=== PATIENT | female | born 1955 | race Caucasian/White ===

== ENCOUNTER 2017-05-28 16:06 | Emergency (ER) | payer MEDICAID ==
[2017-05-28 16:10] VITALS: BP 132/70; PULSE 64; O2SAT 97
--- NOTE | 2017-05-28 16:25 | ERPHSYRPT ---
- History of Present Illness Time Seen by Provider: 05/28/17 16:16 Source: patient Exam Limitations: no limitations Patient Subjective Stated Complaint: PT REPORTS LOW BACK SPASMS ON LEFT SIDE- REPORTS WAS TX AT PCP TODAY-PAIN BECAME WORSE TONIGHT-DENIES NUMBNESS OR TINLGING-DENIES INJURY Triage Nursing Assessment: PT PINK WARM ET [id number] OBVIOUS INJURY-NO BRUISING OR ABRASIONS-PT ABLE TO BEAR WT Physician History: The patient is a 62-year-old female who complains of spasms to her left lower back that became worse today. She states that on Saturday her son-in-law gave her a big hug, lifting her off the ground, and causing her back to began to hurt. It hurt yesterday. She saw her doctor today who had her place some patches on her back that made it worse. She denies numbness or tingling. She denies urinary problems. She denies bowel problems. Her past medical history is significant for COPD. Timing/Duration: day(s) (2), gradual onset Method of Injury: twisted Quality: aching Back Pain Location: lumbar spine, paraspinous muscles Severity of Pain-Max: moderate Severity of Pain-Current: moderate Modifying Factors: Improves With: movement Associated Symptoms: denies symptoms, muscle spasms, No urinary incontinence, No loss of bowel control, No problems urinating, No numbness in legs/feet, No sensory/motor loss, No tingling in legs/feet Previous symptoms: no prior history Allergies/Adverse Reactions: cephalexin monohydrate [From Keflex] Allergy (Severe, Verified 05/28/17 16:10) nitroglycerin Allergy (Severe, Verified 05/28/17 16:10) cardiac arrest Home Medications: Aspirin EC 325 mg [Ecotrin 325 MG] 325 mg PO DAILY 08/07/13 [History] Hx Tetanus, Diphtheria Vaccination/Date Given: No Hx Influenza Vaccination/Date Given: No Hx Pneumococcal Vaccination/Date Given: No Immunizations Up to Date: Yes - Review of Systems Constitutional: No Fever, No Chills Eyes: No Symptoms Ears, Nose, & Throat: No Symptoms Respiratory: No Cough, No Dyspnea Cardiac: No Chest Pain, No Edema, No Syncope Abdominal/Gastrointestinal: No Abdominal Pain, No Nausea, No Vomiting, No Diarrhea Genitourinary Symptoms: No Dysuria Musculoskeletal: Back Pain Skin: No Rash Neurological: No Dizziness, No Focal Weakness, No Sensory Changes Psychological: No Symptoms Endocrine: No Symptoms Hematologic/Lymphatic: No Symptoms Immunological/Allergic: No Symptoms All Other Systems: Reviewed and Negative - Past Medical History Pertinent Past Medical History: Yes Respiratory History: COPD - Past Surgical History Past Surgical History: Yes Gastrointestinal: Cholecystectomy, Hernia Repair - Social History Smoking Status: Current every day smoker How long have you smoked: 43 Exposure to second hand smoke: Yes Drug Use: none Patient Lives Alone: No - Female History Hx Now: No - Nursing Vital Signs Nursing Vital Signs: Initial Vital Signs Temperature 99.0 F 05/28/17 16:06 Pulse Rate 64 05/28/17 16:06 Respiratory Rate 18 05/28/17 16:06 Blood Pressure 132/70 05/28/17 16:06 O2 Sat by Pulse Oximetry 97 05/28/17 16:06 Pain Scale Pain Intensity 3 - Physical Exam General Appearance: mild distress Eye Exam: PERRL/EOMI, eyes nml inspection Ears, Nose, Throat Exam: normal ENT inspection Neck Exam: normal inspection, non-tender, supple, full range of motion, No meningismus, No midline tenderness Respiratory Exam: normal breath sounds Cardiovascular Exam: regular rate/rhythm, normal heart sounds Gastrointestinal Exam: soft, No tenderness, No mass Pelvic Exam: not done Rectal Exam: not done Back Exam: decreased range of motion, muscle spasm Extremity Exam: normal inspection, normal range of motion, No calf tenderness, No pedal edema Neurologic Exam: alert, oriented x 3, cooperative, diagnostic imaging manager II-XII nml as tested, normal mood/affect, nml station & gait, sensation nml, No motor deficits Skin Exam: normal color, warm, dry, No rash SpO2 Interpretation: normal SpO2: 97 Oxygen Delivery: Room Air - Progress Progress: improved Counseled pt/family regarding: diagnosis - Departure Time of Disposition: 16:30 Departure Disposition: Home Clinical Impression: Back spasm Condition: Stable Critical Care Time: No Additional Instructions: You have a back spasm on the left side. You were given Toradol 60 mg and Decadron 10 mg by IM injection in the ER. Take Flexeril 5 mg every 8 hours as needed. Apply ice as needed. Have someone gently massage the tight muscle as needed. Follow-up as needed. Prescriptions: Cyclobenzaprine HCl [Flexeril] 5 mg PO Q8H PRN PRN #10 tablet PRN Reason: Muscle Spasms
[2017-05-28] MEDS ORDERED: DECADRON 10MG INJ. IM ONE (16:29)
[2017-05-28] MEDS ORDERED: TORAdol 30 mg Injection IM ONE (16:29)
[2017-05-28] MEDS ORDERED: TORAdol 30 mg Injection ONE (16:34)
[2017-05-28] MEDS ORDERED: DECADRON 10MG INJ. ONE (16:34)
== END 2017-05-28 16:49 | disposition home or self-care (01) ==
LOC: ED 16:06
DX: M62.830 Muscle spasm of back (principal); M54.5 Low back pain; X50.9XXA Other and unspecified overexertion or strenuous movements or postures, initial encounter
CPT/HCPCS: 96372; 99284; J1100; J1885

== ENCOUNTER 2022-04-12 17:34 | Emergency (ER) | payer MEDICARE, OTHER ==
[2022-04-12] MEDS ORDERED: DUONEB 0.5-3 MG/3 ml Neb IH ONE ×2 (18:13→18:37)
--- NOTE | 2022-04-12 18:22 | ERPHSYRPT ---
- History of Present Illness Time Seen by Provider: 04/12/22 18:01 Source: patient Exam Limitations: no limitations Patient Subjective Stated Complaint: PT CO INCREASE SOB, WAS SEEN SATURDAY BY FAMILY DOC AND PLACED ON INHALER, STEROIDS, AND ANTIBOITCS,SHE STATES SHE IS NOT BETTER Triage Nursing Assessment: PT ALERT, ARRIVED PER WC, RESP LABORED WITH MOVEMENT, HAS CONGESTED SOUNDING COUGH, BS DIMINISHED Physician History: 70 years old female with history of tobacco abuse, COPD presented in the ER with over 1 week history of gradually worsening cough productive of clear to yellow sputum moderate in amount with associated increasing shortness of breath especially with exertion. Patient reports she was seen outpatient and is currently taking Zithromax. She has been using inhaler frequently than prescribed to get some relief but does not last longer. No fever or chills reported. Complaining of generalized chest tightness and pressure and wheezing with getting short of breath with few steps. Reports earlier her oxygen saturation was dropping and upper 70s, lower 80s. Timing/Duration: week(s) (1), gradual onset, worse Severity of Dyspnea-Max: moderate Severity of Dyspnea-Current: moderate Possible Cause: unknown cause Modifying Factors: Improves With: albuterol inhaler, rest. Worsens With: coughing, exertion Associated Symptoms: cough, chest pain/discomfort, productive cough, tightness, No fever, No hemoptysis Allergies/Adverse Reactions: cephalexin monohydrate [From Keflex] Allergy (Severe, Verified 04/12/22 17:44) nitroglycerin Allergy (Severe, Verified 04/12/22 17:44) cardiac arrest Home Medications: Aspirin EC 325 mg [Ecotrin 325 MG] 325 mg PO DAILY 08/07/13 [History] Azithromycin [Azithromycin 250 mg Pack] 1 ea DAILY 04/12/22 [History] methylPREDNISolone [Medrol] 1 ea DAILY 04/12/22 [History] Hx Tetanus, Diphtheria Vaccination/Date Given: No Hx Influenza Vaccination/Date Given: No Hx Pneumococcal Vaccination/Date Given: No Immunizations Up to Date: Yes Travel Risk - International Travel Have you traveled outside of the country in past 3 weeks: No - Coronavirus Screening Are you exhibiting any of the following symptoms?: Yes Symptoms: Cough: New Onset, Shortness of Breath Close contact with a COVID-19 positive Pt in past 14-21 Days: No - Vaccine Status Have you recieved a Covid-19 vaccination: No - Review of Systems Constitutional: No Symptoms Eyes: No Symptoms Ears, Nose, & Throat: No Symptoms Respiratory: Cough, Dyspnea, Dyspnea on Exertion (MENON), Wheezing Cardiac: No Symptoms Abdominal/Gastrointestinal: No Symptoms Genitourinary Symptoms: No Symptoms Musculoskeletal: No Symptoms Skin: No Symptoms Neurological: No Symptoms Psychological: No Symptoms Endocrine: No Symptoms Hematologic/Lymphatic: No Symptoms Immunological/Allergic: No Symptoms - Past Medical History Pertinent Past Medical History: Yes Respiratory History: COPD - Past Surgical History Past Surgical History: Yes Gastrointestinal: Cholecystectomy, Hernia Repair - Social History Smoking Status: Current every day smoker How long have you smoked: 43 Exposure to second hand smoke: Yes Drug Use: none Patient Lives Alone: No - Nursing Vital Signs Nursing Vital Signs: Initial Vital Signs Temperature 97.8 F 04/12/22 17:37 Pulse Rate 106 H 04/12/22 17:37 Respiratory Rate 26 H 04/12/22 17:37 Blood Pressure 157/110 04/12/22 17:37 O2 Sat by Pulse Oximetry 90 L 04/12/22 17:37 Pain Scale Pain Intensity 0 - Physical Exam General Appearance: no apparent distress, alert Eye Exam: photophobia Ears, Nose, Throat Exam: hearing grossly normal, normal ENT inspection, pharyngeal erythema Neck Exam: normal inspection, non-tender, supple, carotid bruit Respiratory Exam: diminished breath sounds, accessory muscle use, rhonchi, wheezing Cardiovascular/Chest Exam: normal heart sounds, regular rate/rhythm Abdominal/Gastrointestinal Exam: soft, normal bowel sounds, No tenderness Extremity Exam: non-tender, normal range of motion Neurologic Exam: alert, oriented x 3, sand filler II-XII nml as tested Skin Exam: normal color SpO2 Interpretation: normal SpO2: 90 O2 Delivery: Room Air - Course EKG Interpreted by Me: RATE (100), Sinus Rhythm, Left Davilla Deviation, NORMAL INTERVALS, Q-wave, Non-specific ST Changes Ordered Tests: Active Orders 24 hr Category Date Time Status Grounds Supervisor STAT Care 04/12/22 18:13 Active EKG-ER Only STAT Care 04/12/22 18:12 Active IV Insertion STAT Care 04/12/22 18:12 Active CBC W DIFF Stat Lab 04/12/22 18:30 Completed CMP Stat Lab 04/12/22 18:30 Completed TROPONIN Q3H Lab 04/12/22 18:30 Completed TROPONIN Q3H Lab 04/12/22 21:15 Ordered TROPONIN Q3H Lab 04/13/22 00:15 Ordered TROPONIN Q3H Lab 04/13/22 03:15 Ordered TROPONIN Q3H Lab 04/13/22 06:15 Ordered Respiratory Therapy Assessment DAILY RT 04/12/22 18:41 Active Medication Summary Discontinued Medications Generic Name Dose Route Start Last Admin Trade Name Tomaszq PRN Reason Stop Dose Admin Albuterol/Ipratropium 3 ml 04/12/22 18:13 04/12/22 18:38 Ipratropium/Albuterol Sulfate 3 Ml Ampul.Neb IH 04/12/22 18:14 3 ml STAT ONE Administration Albuterol/Ipratropium Confirm 04/12/22 18:37 Ipratropium/Albuterol Sulfate 3 Ml Ampul.Neb Administered 04/12/22 18:38 Dose 3 ml IH .STK-MED ONE Lab/Rad Data: Laboratory Result Diagrams 04/12/22 18:30 04/12/22 18:30 Laboratory Results 04/12/22 04/12/22 04/12/22 Range/Units 18:30 18:30 18:30 WBC 14.3 H (4.0-10.5) x10^3/uL RBC 5.20 (4.1-5.4) x10^6/uL Hgb 16.0 (12.0-16.0) g/dL Hct 48.2 H (35-47) % MCV 92.7 (78-100) fL MCH 30.8 (26-32) pg MCHC 33.2 (32-36) g/dL RDW 12.5 (11.5-14.0) % Plt Count 269 (150-450) x10^3/uL MPV 10.9 (7.5-11.0) fL Gran % 68.5 H (36.0-66.0) % Immature Gran % (Auto) 1.1 H (0.00-0.4) % Nucleat RBC Rel Count 0.0 (0.00-0.1) % Eos # (Auto) 0.18 (0-0.5) x10^3/uL Immature Gran # (Auto) 0.16 H (0.00-0.03) x10^3u/L Absolute Lymphs (auto) 2.26 (1.0-4.6) x10^3/uL Absolute Monos (auto) 1.80 H (0.0-1.3) x10^3/uL Absolute Nucleated RBC 0.00 (0.00-0.01) x10^3u/L Lymphocytes % 15.8 L (24.0-44.0) % Monocytes % 12.6 H (0.0-12.0) % Eosinophils % 1.3 (0.00-5.0) % Basophils % 0.7 (0.0-0.4) % Absolute Granulocytes 9.79 H (1.4-6.9) x10^3/uL Basophils # 0.10 (0-0.4) x10^3/uL Sodium 140 (137-145) mmol/L Potassium 3.7 (3.5-5.1) mmol/L Chloride 99 (98-107) mmol/L Carbon Dioxide 32 H (22-30) mmol/L Anion Gap 12.6 (5-15) MEQ/L BUN 11 (7-17) mg/dL Creatinine 0.59 (0.52-1.04) mg/dL Estimated GFR > 60.0 ML/MIN Glucose 106 (74-106) mg/dL Calcium 9.2 (8.4-10.2) mg/dL Total Bilirubin 0.70 (0.2-1.3) mg/dL AST 34 (14-36) U/L ALT 34 (0-35) U/L Alkaline Phosphatase 115 (38-126) U/L Troponin I < 0.012 (0.000-0.034) ng/mL Serum Total Protein 7.9 (6.3-8.2) g/dL Albumin 4.2 (3.5-5.0) g/dL - Progress Progress: re-examined Air Movement: fair Progress Note: 04/12/22 19:27 67-year-old smoker is evaluated for worsening shortness of breath and cough. She is given DuoNeb. Chest x-ray reviewed by me did not reveal any obvious acute findings. She has a white count of 14, EKG no acute ST elevation and negative troponins. Patient oxygen saturation is dropping to 89% on room air while sitting and with ambulation dropping to mid 80s. Patient though feeling better after neb treatment. I have recommended admission but she does not want to stay in the hospital at all. She is not confused altar and does understand the risk of leaving which could be not only worsening of condition but also full-blown respiratory distress leading to . She still wants to leave. Patient and her fianc was involved in decision making. She wanted prescription of DuoNeb sent to the pharmacy which I will do. She is advised to return to ER and follow-up with primary care. I have discussed with her primary care as well and he recommended obtaining COVID testing but patient said absolutely not to COVID test. Antibiotics given: No Discussed with DrElvin: Brittany Counseled pt/family regarding: lab results, diagnosis, need for follow-up, rad results, smoking cessation - Departure Departure Disposition: AMA Clinical Impression: COPD exacerbation, Respiratory failure Condition: Fair Critical Care Time: No Referrals: NIYA FELICIANO MD [Primary Care Provider] - Follow up/PCP as directed (Tomorrow for reevaluation) Instructions: Chronic Obstructive Pulmonary Disease, Exacerbation of COPD (DC) Additional Instructions: Do not smoke continue with breathing treatments as recommended. Continue with antibiotics. Follow-up with primary care for reevaluation tomorrow. Return to ER for any worsening. Prescriptions: Albuterol/Ipratropium 3ml Neb* [DUONEB 0.5-3 MG/3 ml Neb] 3 ml IH Q6H PRN 30 Days #120 amp PRN Reason: Shortness Of Breath
[2022-04-12 18:34] LABS: Absolute Neutrophil Ct (ANC) 9.79 x10^3/uL (1.4-6.9); Eosinophil % 1.3 % (0.00-5.0); Eosinophil (Absolute #) 0.18 x10^3/uL (0-0.5); Hematocrit 48.2 % (35-47); Lymphocyte (Absolute #) 2.26 x10^3/uL (1.0-4.6); Lymphocytes % 15.8 % (24.0-44.0); Mean Cell Volume 92.7 fL (78-100); Mean Corpuscular Hemoglobin 30.8 pg (26-32); Mean Corpuscular Hgb Concent. 33.2 g/dL (32-36); Mean Platelet Volume 10.9 fL (7.5-11.0); Monocytes % 12.6 % (0.0-12.0); Neutrophil % 68.5 % (36.0-66.0); Platelet Count 269 x10^3/uL (150-450); Red Cell Distribution Width 12.5 % (11.5-14.0); White Blood Count 14.3 x10^3/uL (4.0-10.5)
[2022-04-12 18:48] LABS: ALBUMIN 4.2 g/dL (3.5-5.0); ALKALINE PHOSPHATASE 115 U/L (38-126); ANION GAP 12.6 MEQ/L (5-15); BLOOD UREA NITROGEN 11 mg/dL (7-17); CHLORIDE 99 mmol/L (98-107); Calcium 9.2 mg/dL (8.4-10.2); Carbon Dioxide 32 mmol/L (22-30); Creatinine 1 0.59 mg/dL (0.52-1.04); EST GLOMERULAR FILTRATION RATE > 60.0 ML/MIN; Glucose 106 mg/dL (74-106); Potassium 3.7 mmol/L (3.5-5.1); SGOT/AST 34 U/L (14-36); SGPT/ALT 34 U/L (0-35); SODIUM 140 mmol/L (137-145); Total Protein 7.9 g/dL (6.3-8.2)
[2022-04-12 19:08] VITALS: BP 135/84; PULSE 98
[2022-04-12 19:31] VITALS: O2SAT 90
[2022-04-13 01:00] LABS: Slide Review 1 YES
== END 2022-04-12 19:35 | disposition left against medical advice (07) ==
LOC: ED 17:34
DX: J44.1 Chronic obstructive pulmonary disease with (acute) exacerbation (principal); J96.90 Respiratory failure, unspecified, unspecified whether with hypoxia or hypercapnia; R05.9 Cough, unspecified; R07.9 Chest pain, unspecified; Z72.0 Tobacco use; Z79.52 Long term (current) use of systemic steroids; Z79.899 Other long term (current) drug therapy; Z28.310 Unvaccinated for COVID-19
CPT/HCPCS: 36000; 36415; 71046; 80053; 84484; 85025; 93005; 93041; 94640; 99284; A9270-GY

== ENCOUNTER 2022-11-26 09:26 | Observation (INO) | payer MEDICARE ==
--- NOTE | 2022-11-26 10:43 | ERPHSYRPT ---
- History of Present Illness Time Seen by Provider: 11/26/22 10:30 Source: patient Exam Limitations: no limitations Patient Subjective Stated Complaint: pt here for multi co, co nausea no vomitng for a few days is able to keep fluids down, increase sob and weakness Triage Nursing Assessment: pt alert, walked in, resp labored with excertion, lung sounds diminished,edema to lower legs that is normal for her, has congest sounding cough Physician History: Patient is a 67-year-old female presents emergency department for evaluation of nausea. Patient has been feeling nauseous for 3 days. Patient also has been experiencing progressive shortness of breath. Chest pain. upon arrival to our ED patient's breathing was labored. Patient states she feels weak and cold. Patient has generalized weakness that has been getting worse over the past 3 days as well. Symptoms are progressive. Symptoms are moderate in intensity. No specific worsening improving factors. Patient denies a history of the same. She voices no other complaints or concerns at this time. Of note patient is a current smoker. She states she is attempting to quit smoking. She is down to 5 cigarettes/day Portions of this note were created with voice recognition technology. There may be grammatical, spelling, punctuation or sound alike errors Timing/Duration: day(s) (3 days) Severity: moderate Modifying Factors: Improves With: nothing Associated Symptoms: nausea, shortness of breath, cough, No fever, No syncope Allergies/Adverse Reactions: cephalexin monohydrate [From Keflex] Allergy (Severe, Verified 11/26/22 09:29) nitroglycerin Allergy (Severe, Verified 11/26/22 09:29) cardiac arrest Home Medications: Aspirin EC 325 mg [Ecotrin 325 MG] 325 mg PO DAILY 08/07/13 [History] Hx Tetanus, Diphtheria Vaccination/Date Given: No Hx Influenza Vaccination/Date Given: No Hx Pneumococcal Vaccination/Date Given: No Immunizations Up to Date: Yes Travel Risk - International Travel Have you traveled outside of the country in past 3 weeks: No - Coronavirus Screening Are you exhibiting any of the following symptoms?: Yes Symptoms: Cough: New Onset, Shortness of Breath Close contact with a COVID-19 positive Pt in past 14-21 Days: No - Vaccine Status Have you recieved a Covid-19 vaccination: No - Review of Systems Constitutional: No Symptoms, No Fever, No Chills Eyes: No Symptoms Ears, Nose, & Throat: No Symptoms Respiratory: No Symptoms, No Cough, No Dyspnea Cardiac: No Symptoms, No Chest Pain, No Edema, No Syncope Abdominal/Gastrointestinal: No Symptoms, No Abdominal Pain, No Nausea, No Vomiting, No Diarrhea Genitourinary Symptoms: No Symptoms, No Dysuria Musculoskeletal: No Symptoms, No Back Pain, No Neck Pain Skin: No Symptoms, No Rash Neurological: No Dizziness, No Focal Weakness, No Sensory Changes Psychological: No Symptoms Endocrine: No Symptoms Hematologic/Lymphatic: No Symptoms Immunological/Allergic: No Symptoms All Other Systems: Reviewed and Negative - Past Medical History Pertinent Past Medical History: Yes Respiratory History: COPD - Past Surgical History Past Surgical History: Yes Gastrointestinal: Cholecystectomy, Hernia Repair - Social History Smoking Status: Current every day smoker How long have you smoked: 43 Exposure to second hand smoke: Yes Drug Use: none Patient Lives Alone: No - Nursing Vital Signs Nursing Vital Signs: Initial Vital Signs Respiratory Rate 22 11/26/22 10:24 Blood Pressure 113/61 11/26/22 10:24 O2 Sat by Pulse Oximetry 91 L 11/26/22 10:24 Pain Scale Pain Intensity 0 - Physical Exam General Appearance: no apparent distress, alert Eye Exam: PERRL/EOMI, eyes nml inspection Ears, Nose, Throat Exam: normal ENT inspection, TMs normal, pharynx normal, moist mucous membranes Neck Exam: normal inspection, non-tender, supple, full range of motion Respiratory Exam: normal breath sounds, lungs clear, airway intact, No respiratory distress Cardiovascular Exam: regular rate/rhythm, normal heart sounds, normal peripheral pulses Gastrointestinal/Abdomen Exam: soft, normal bowel sounds, No tenderness, No mass Back Exam: normal inspection, normal range of motion, No CVA tenderness, No vertebral tenderness Extremity Exam: normal inspection, normal range of motion, pelvis stable Neurologic Exam: alert, oriented x 3, cooperative, normal mood/affect, nml cerebellar function, nml station & gait, sensation nml, No motor deficits Skin Exam: normal color, warm, dry, No rash Lymphatic Exam: No adenopathy SpO2 Interpretation: normal SpO2: 91 O2 Delivery: Room Air - Course Nursing assessment & vital signs reviewed: Yes - Radiology Exams Chest X-ray Interpretation: Teleradiologist Report (New bilateral mid to lower lung consolidating/9 consolidating airspace disease without large effusion. Heart not enlarged. Bony thorax intact again with osteopenia and degenerative changes.) Ordered Tests: Active Orders 24 hr Category Date Time Status Loss Mitigation Specialist STAT Care 11/26/22 10:41 Active EKG-ER Only STAT Care 11/26/22 10:40 Active IV Insertion STAT Care 11/26/22 10:40 Active Pulse Oximetry (ED) STAT Care 11/26/22 10:40 Active CHEST 1 VIEW (PORTABLE) Stat Exams 11/26/22 10:41 Completed CBC W DIFF Stat Lab 11/26/22 09:45 Completed NT PRO BNP Stat Lab 11/26/22 09:45 Completed TROPONIN Q4H Lab 11/26/22 14:45 Ordered TROPONIN Q4H Lab 11/26/22 18:45 Ordered UA W/RFX UR CULTURE Stat Lab 11/26/22 10:41 Ordered Transfer Order Routine Transfer 11/26/22 Ordered Medication Summary Generic Name Dose Route Start Last Admin Trade Name Freq PRN Reason Stop Dose Admin Sodium Chloride 1,000 mls @ 100 mls/hr 11/26/22 13:30 Sodium Chloride 0.9% 1000 Ml IV 12/26/22 13:29 .Q10H STELLA Discontinued Medications Generic Name Dose Route Start Last Admin Trade Name Freq PRN Reason Stop Dose Admin Levofloxacin/Dextrose 500 mg in 100 mls @ 100 mls/hr 11/26/22 12:07 11/26/22 12:36 Levofloxacin 500mg/100ml D5w IV 11/26/22 13:06 100 ml/hr STAT STA 100 mls/hr Administration Levofloxacin/Dextrose Confirm 11/26/22 12:31 Levofloxacin 500mg/100ml D5w Administered 11/26/22 12:32 Dose 500 mg in 100 mls @ ud IV .STK-MED ONE Ondansetron HCl 4 mg 11/26/22 13:29 Ondansetron Hcl 4 Mg/2 Ml Vial IV 11/26/22 13:30 STAT ONE Potassium Chloride 40 meq 11/26/22 13:23 Potassium Chloride Tab 10 Meq Tab PO 11/26/22 13:24 STAT ONE Lab/Rad Data: Laboratory Result Diagrams 11/26/22 09:45 11/26/22 09:45 Laboratory Results 11/26/22 11/26/22 11/26/22 Range/Units 09:45 09:45 09:45 WBC 16.9 H (4.0-10.5) x10^3/uL RBC 4.30 (4.1-5.4) x10^6/uL Hgb 12.9 (12.0-16.0) g/dL Hct 38.1 (35-47) % MCV 88.6 (78-100) fL MCH 30.0 (26-32) pg MCHC 33.9 (32-36) g/dL RDW 13.0 (11.5-14.0) % Plt Count 178 (150-450) x10^3/uL MPV 11.9 H (7.5-11.0) fL Gran % 77.7 H (36.0-66.0) % Immature Gran % (Auto) 1.1 H (0.00-0.4) % Nucleat RBC Rel Count 0.0 (0.00-0.1) % Eos # (Auto) 0.09 (0-0.5) x10^3/uL Immature Gran # (Auto) 0.19 H (0.00-0.03) x10^3u/L Absolute Lymphs (auto) 1.10 (1.0-4.6) x10^3/uL Absolute Monos (auto) 2.35 H (0.0-1.3) x10^3/uL Absolute Nucleated RBC 0.00 (0.00-0.01) x10^3u/L Lymphocytes % 6.5 L (24.0-44.0) % Monocytes % 13.9 H (0.0-12.0) % Eosinophils % 0.5 (0.00-5.0) % Basophils % 0.3 (0.0-0.4) % Absolute Granulocytes 13.15 H (1.4-6.9) x10^3/uL Basophils # 0.05 (0-0.4) x10^3/uL Sodium Direct 129 L (138-146) mmol/L Potassium 3.4 L (3.5-4.9) mmol/L Chloride 93 L (98-109) mmol/L Carbon Dioxide 27 (24-29) mmol/L Venous BUN 15 (8-26) mg/dL Creatinine 0.6 (0.6-1.3) mg/dL Glucose 123 H (70-105) mg/dL Ionized Calcium 1.10 L (1.12-1.32) mmol/L Troponin 0.00 (0.00-0.03) ng/mL NT-Pro-B Natriuret Pep 725 (0-900) pg/mL Slides for Path Review YES - Progress Progress: improved Progress Note: Patient declined an EKG for unclear reasons. Patient states " I just do not want it done" Patient is a 67-year-old female presents emergency department for evaluation of progressive shortness of breath and nausea. Patient's symptoms were acute in onset and progressive in nature. Physical exam reveals mild respiratory distress with hypoxia. Patient's complaint was moderate in intensity. Patient is a smoker with a history of COPD which may have complicated patient's current presentation. Test ordered include chest x-ray, CBC CMP, BNP, troponin,. Test were reviewed and contributed to this medical decision-making process. Work-up reveals leukocytosis bilateral pneumonia hypoxia hypokalemia hyponatremia hyperglycemia. Patient received Levaquin antibiotic. Oral potassium administered. Zofran for nausea. IV fluids administered for hyponatremia. Case discussed with Dr. Feliciano who accepts admission to observation. Level of EM service provided was moderate. Complexity of problem addressed was moderate. Complexity of data reviewed and analyzed is moderate. Risk of complication and/or morbidity/mortality of patient management is moderate. No critical care time Patient served as an independent historian. Patient reassessed. Patient resting comfortably. Patient breathing easily. However in light of pneumonia patient will require hospitalization for further evaluation and treatment. Portions of this note were created with voice recognition technology. There may be grammatical, spelling, punctuation or sound alike errors 11/26/22 13:32 Discussed with : Brittany Will see patient in: hospital (observation) Counseled pt/family regarding: lab results, diagnosis, rad results - Departure Departure Disposition: Observation Clinical Impression: Nausea, SOB (shortness of breath), Generalized weakness, Cough, Leukocytosis, Bilateral pneumonia, Hypoxia, Hypokalemia, Hyponatremia, Hyperglycemia Condition: Stable Critical Care Time: No Referrals: NIYA FELICIANO MD [Primary Care Provider] - Follow up/PCP as directed
[2022-11-26 10:46] LABS: Absolute Neutrophil Ct (ANC) 13.15 x10^3/uL (1.4-6.9); BASOPHIL % 0.3 % (0.0-0.4); Basophil (Absolute #) 0.05 x10^3/uL (0-0.4); Eosinophil % 0.5 % (0.00-5.0); Eosinophil (Absolute #) 0.09 x10^3/uL (0-0.5); Hematocrit 38.1 % (35-47); Hemoglobin 12.9 g/dL (12.0-16.0); IMMATURE GRAN # 0.19 x10^3u/L (0.00-0.03); IMMATURE GRAN % 1.1 % (0.00-0.4); Lymphocytes % 6.5 % (24.0-44.0); Mean Cell Volume 88.6 fL (78-100); Mean Corpuscular Hgb Concent. 33.9 g/dL (32-36); Mean Platelet Volume 11.9 fL (7.5-11.0); Monocyte (Absolute #) 2.35 x10^3/uL (0.0-1.3); Monocytes % 13.9 % (0.0-12.0); Neutrophil % 77.7 % (36.0-66.0); Platelet Count 178 x10^3/uL (150-450); White Blood Count 16.9 x10^3/uL (4.0-10.5)
--- NOTE | 2022-11-26 11:12 | XRAY ---
Indication: Short of breath and nausea. Comparison: April 12, 2022 Portable chest demonstrates new bilateral mid to lower lung consolidating/nonconsolidating airspace disease without large effusion. Heart not enlarged. Bony thorax intact again with osteopenia and degenerative changes.
[2022-11-26 11:13] LABS: Slide Review 1 YES
[2022-11-26] MEDS ORDERED: Levofloxacin 500MG/100ML D5W 500 MG/100 ML BAG IV STA (12:07)
[2022-11-26 12:20] LABS: ISTAT CREA 0.6 mg/dL (0.6-1.3); ISTAT K 3.4 mmol/L (3.5-4.9); ISTAT iCA 1.1 mmol/L (1.12-1.32)
[2022-11-26] MEDS ORDERED: Levofloxacin 500MG/100ML D5W 500 MG/100 ML BAG IV ONE (12:31)
[2022-11-26] MEDS ORDERED: Klor Con PO ONE ×2 (13:23→14:08)
[2022-11-26] MEDS ORDERED: Zofran 4 MG/2 ML VIAL IV ONE (13:29)
[2022-11-26] MEDS ORDERED: Sodium Chloride 0.9% 1000 ML 1,000 ML IV SCH (13:30)
[2022-11-26] MEDS ORDERED: Zofran 4 MG/2 ML VIAL ONE (14:08)
[2022-11-26] MEDS ORDERED: Sodium Chloride 0.9% 1000 ML 1,000 ML ONE (14:09)
[2022-11-26] MEDS: PROVENTIL 2.5 MG/3 ML NEB IH SCH ×3 (15:34→23:03)
[2022-11-26] MEDS ORDERED: TYLENOL 325 MG PO PRN (16:09)
--- NOTE | 2022-11-26 18:15 | PCM.HP ---
History of Present Illness - Chief Complaint Chief Complaint: Pneumonia History of Present Illness: is a 67 year old female.presents emergency department for evaluation of nausea. Patient has been feeling nauseous for 3 days. Patient also has been experiencing progressive shortness of breath. Chest pain. upon arrival to our ED patient's breathing was labored. Patient states she feels weak and cold. Patient has generalized weakness that has been getting worse over the past 3 days as well. Symptoms are progressive. Symptoms are moderate in intensity. No specific worsening improving factors. Patient denies a history of the same. She voices no other complaints or concerns at this time. Of note patient is a current smoker. She states she is attempting to quit smoking. She is down to 5 cigarettes/day - Review of Systems Constitutional: No Fever, No Chills Eyes: No Symptoms Ears, Nose, & Throat: No Symptoms Respiratory: Cough, Orthopnea, Short Of Breath, Wheezing Cardiac: Chest Pain, No Edema, No Syncope Abdominal/Gastrointestinal: No Abdominal Pain, No Nausea, No Vomiting, No Diarrhea Genitourinary Symptoms: No Dysuria Musculoskeletal: No Back Pain, No Neck Pain Skin: No Rash Neurological: No Dizziness, No Focal Weakness, No Sensory Changes Psychological: No Symptoms Endocrine: No Symptoms Hematologic/Lymphatic: No Symptoms Immunological/Allergic: No Symptoms Medications & Allergies Home Medications: Home Medication List Aspirin EC 325 mg [Ecotrin 325 MG] 325 mg PO DAILY 08/07/13 [History Confirmed 11/26/22] Budesonide/Formoterol Fumarate [Budesonide-Formoterol 160-4.5] 10.2 gm IH BID 11/26/22 [History Confirmed 11/26/22] Allergies/Adverse Reactions: Allergies Allergy/AdvReac Type Severity Reaction Status Date / Time cephalexin monohydrate Allergy Severe Verified 11/26/22 09:29 [From Keflex] nitroglycerin Allergy Severe Verified 11/26/22 09:29 - Past Medical History Past Medical History: Yes Neurological History: No Pertinent History ENT History: Macular Degeneration Cardiac History: No Pertinent History Respiratory History: COPD Endocrine Medical History: No Pertinent History Musculoskelatal History: No Pertinent History GI Medical History: Gallbladder Disease History: No Pertinent History Pyscho-Social History: No Pertinent History Reproductive Disorders: No Pertinent History - Female History Are you now?: No - Past Surgical History Past Surgical History: Yes Neuro Surgical History: No Pertinent History Cardiac History: No Pertinent History Respiratory Surgery: No Pertinent History GI Surgical History: Cholecystectomy, Hernia Repair Genitourinary Surgical Hx: No Pertinent History Musculskeletal Surgical Hx: No Pertinent History Female Surgical History: No Pertinent History - Social History Smoking Status: Current every day smoker How long have you smoked: 50 Exposure to second hand smoke: Yes Alcohol: Daily Drug Use: none - Physical Exam Vital Signs: Vital Signs - 24 hr Temp Pulse Resp BP Pulse Ox 11/26/22 16:00 101.5 F 100 H 16 141/63 90 L 11/26/22 15:35 100 H 16 90 L 11/26/22 15:00 90 L 11/26/22 14:48 72 18 96 11/26/22 14:40 101.5 F 105 H 20 141/63 90 L 11/26/22 13:55 91 L 11/26/22 13:17 98 H 20 145/86 90 L 11/26/22 12:00 98 H 28 H 125/86 88 L 11/26/22 11:29 97 H 28 H 147/70 92 L 11/26/22 10:58 92 L 11/26/22 10:24 22 113/61 91 L General Appearance: no apparent distress, alert Neurologic Exam: alert, oriented x 3, cooperative, normal mood/affect, nml cerebellar function, nml station & gait, sensation nml, No motor deficits Eye Exam: PERRL/EOMI, eyes nml inspection Ears, Nose, Throat Exam: normal ENT inspection, TMs normal, pharynx normal, moist mucous membranes Neck Exam: normal inspection, non-tender, supple, full range of motion Respiratory Exam: diminished breath sounds, crackles/rales, rhonchi, wheezing, No respiratory distress Cardiovascular Exam: regular rate/rhythm, normal heart sounds, normal peripheral pulses Gastrointestinal/Abdomen Exam: soft, normal bowel sounds, No tenderness, No mass Back Exam: normal inspection, normal range of motion, No CVA tenderness, No vertebral tenderness Extremity Exam: normal inspection, normal range of motion, pelvis stable Skin Exam: normal color, warm, dry, No rash Lymphatic Exam: No adenopathy Results - Labs Lab/Micro Results: Lab Results-Last 24 Hours 11/26/22 11/26/22 11/26/22 Range/Units 09:45 09:45 09:45 WBC 16.9 H (4.0-10.5) x10^3/uL RBC 4.30 (4.1-5.4) x10^6/uL Hgb 12.9 (12.0-16.0) g/dL Hct 38.1 (35-47) % MCV 88.6 (78-100) fL MCH 30.0 (26-32) pg MCHC 33.9 (32-36) g/dL RDW 13.0 (11.5-14.0) % Plt Count 178 (150-450) x10^3/uL MPV 11.9 H (7.5-11.0) fL Gran % 77.7 H (36.0-66.0) % Immature Gran % (Auto) 1.1 H (0.00-0.4) % Nucleat RBC Rel Count 0.0 (0.00-0.1) % Eos # (Auto) 0.09 (0-0.5) x10^3/uL Immature Gran # (Auto) 0.19 H (0.00-0.03) x10^3u/L Absolute Lymphs (auto) 1.10 (1.0-4.6) x10^3/uL Absolute Monos (auto) 2.35 H (0.0-1.3) x10^3/uL Absolute Nucleated RBC 0.00 (0.00-0.01) x10^3u/L Lymphocytes % 6.5 L (24.0-44.0) % Monocytes % 13.9 H (0.0-12.0) % Eosinophils % 0.5 (0.00-5.0) % Basophils % 0.3 (0.0-0.4) % Absolute Granulocytes 13.15 H (1.4-6.9) x10^3/uL Basophils # 0.05 (0-0.4) x10^3/uL Sodium Direct 129 L (138-146) mmol/L Potassium 3.4 L (3.5-4.9) mmol/L Chloride 93 L (98-109) mmol/L Carbon Dioxide 27 (24-29) mmol/L Venous BUN 15 (8-26) mg/dL Creatinine 0.6 (0.6-1.3) mg/dL Glucose 123 H (70-105) mg/dL Ionized Calcium 1.10 L (1.12-1.32) mmol/L Troponin 0.00 (0.00-0.03) ng/mL Troponin I (0.000-0.034) ng/mL NT-Pro-B Natriuret Pep 725 (0-900) pg/mL Slides for Path Review YES 11/26/22 Range/Units 15:19 WBC (4.0-10.5) x10^3/uL RBC (4.1-5.4) x10^6/uL Hgb (12.0-16.0) g/dL Hct (35-47) % MCV (78-100) fL MCH (26-32) pg MCHC (32-36) g/dL RDW (11.5-14.0) % Plt Count (150-450) x10^3/uL MPV (7.5-11.0) fL Gran % (36.0-66.0) % Immature Gran % (Auto) (0.00-0.4) % Nucleat RBC Rel Count (0.00-0.1) % Eos # (Auto) (0-0.5) x10^3/uL Immature Gran # (Auto) (0.00-0.03) x10^3u/L Absolute Lymphs (auto) (1.0-4.6) x10^3/uL Absolute Monos (auto) (0.0-1.3) x10^3/uL Absolute Nucleated RBC (0.00-0.01) x10^3u/L Lymphocytes % (24.0-44.0) % Monocytes % (0.0-12.0) % Eosinophils % (0.00-5.0) % Basophils % (0.0-0.4) % Absolute Granulocytes (1.4-6.9) x10^3/uL Basophils # (0-0.4) x10^3/uL Sodium Direct (138-146) mmol/L Potassium (3.5-4.9) mmol/L Chloride (98-109) mmol/L Carbon Dioxide (24-29) mmol/L Venous BUN (8-26) mg/dL Creatinine (0.6-1.3) mg/dL Glucose (70-105) mg/dL Ionized Calcium (1.12-1.32) mmol/L Troponin (0.00-0.03) ng/mL Troponin I < 0.012 (0.000-0.034) ng/mL NT-Pro-B Natriuret Pep (0-900) pg/mL Slides for Path Review - Radiology Impressions Radiology Exams & Impressions: Radiology Procedures Category Date Time Status CHEST 1 VIEW (PORTABLE) Stat Exams 11/26/22 10:41 Completed 0020 RAD/CHEST 1 VIEW (PORTABLE) Indication: Short of breath and nausea. Comparison: April 12, 2022 Portable chest demonstrates new bilateral mid to lower lung consolidating/nonconsolidating airspace disease without large effusion. Heart not enlarged. Bony thorax intact again with osteopenia and degenerative changes. - Other Procedures and Tests Respiratory Therapy 11/26/22 15:27 Respiratory Therapy Assessment DAILY 11/26/22 15:28 Oxygen Nasal Cannula 3 lpm 11/26/22 17:18 Respiratory MDI BID Assessment/Plan (1) Bilateral pneumonia Current Visit: Yes Status: Acute Qualifiers: Pneumonia type: due to Pneumococcus Lung location: lower lobe of lung Qualified Code(s): J13 - Pneumonia due to Streptococcus pneumoniae Assessment & Plan: Chief Complaint Diagnosis Pneumonia Allergies Allergy/AdvReac Type Severity Reaction Status Date / Time cephalexin monohydrate Allergy Severe Verified 11/26/22 09:29 [From Keflex] nitroglycerin Allergy Severe Verified 11/26/22 09:29 Vital Signs (Last 24 hours) Temp Pulse Resp BP Pulse Ox 11/26/22 16:00 101.5 F 100 H 16 141/63 90 L 11/26/22 15:35 100 H 16 90 L 11/26/22 15:00 90 L 11/26/22 14:48 72 18 96 11/26/22 14:40 101.5 F 105 H 20 141/63 90 L 11/26/22 13:55 91 L 11/26/22 13:17 98 H 20 145/86 90 L 11/26/22 12:00 98 H 28 H 125/86 88 L 11/26/22 11:29 97 H 28 H 147/70 92 L 11/26/22 10:58 92 L 11/26/22 10:24 22 113/61 91 L Home Medications Medication Instructions Recorded Confirmed Last Taken Type Budesonide/Formoterol Fumarate 10.2 gm IH BID 11/26/22 11/26/22 11/26/22 History [Budesonide-Formoterol 160-4.5] Current Medications Generic Name Dose Route Start Last Admin Trade Name Zulma PRN Reason Stop Dose Admin Acetaminophen 650 mg 11/26/22 16:09 11/26/22 16:27 Acetaminophen 325 Mg Tablet PO 12/26/22 16:08 650 mg Q4H PRN PRN Administration PAIN AND/OR FEVER Albuterol Sulfate 2.5 mg 11/26/22 15:00 11/26/22 15:34 Albuterol Sulfate 2.5 Mg/3 Ml Neb IH 12/26/22 14:59 2.5 mg Q4HRT STELLA Administration Aspirin 325 mg 11/27/22 10:00 Aspirin 325 Mg Tablet.Ec PO 12/27/22 09:59 DAILY STELLA Methylprednisolone Sodium 0 mg 11/26/22 18:00 Succinate 60 mg/ Sterile Water IV 12/26/22 17:59 2 ml Q6HT STELLA Sodium Chloride 1,000 mls @ 50 mls/hr 11/26/22 14:40 Sodium Chloride 0.9% 1000 Ml IV 12/26/22 14:39 .Q20H STELLA Levofloxacin/Dextrose 750 mg in 150 mls @ 100 mls/hr 11/28/22 10:00 Levofloxacin 750mg/150ml D5w IV 12/28/22 09:59 Q48H STELLA Symbicort 160/4.5 - 2 each 11/26/22 19:00 Patient Own 12/26/22 18:59 BIDRT STELLA Discontinued Medications Generic Name Dose Route Start Last Admin Trade Name Zulma PRN Reason Stop Dose Admin Levofloxacin/Dextrose 500 mg in 100 mls @ 100 mls/hr 11/26/22 12:07 11/26/22 14:10 Levofloxacin 500mg/100ml D5w IV 11/26/22 13:06 Infused STAT STA Infusion Levofloxacin/Dextrose Confirm 11/26/22 12:31 Levofloxacin 500mg/100ml D5w Administered 11/26/22 12:32 Dose 500 mg in 100 mls @ ud IV .STK-MED ONE Sodium Chloride 1,000 mls @ 100 mls/hr 11/26/22 13:30 11/26/22 14:10 Sodium Chloride 0.9% 1000 Ml IV 12/26/22 13:29 100 mls/hr .Q10H STELLA Administration Sodium Chloride Confirm 11/26/22 14:09 Sodium Chloride 0.9% 1000 Ml Administered 11/26/22 14:10 Dose 1,000 mls @ ud .ROUTE .STK-MED ONE Ondansetron HCl 4 mg 11/26/22 13:29 11/26/22 14:10 Ondansetron Hcl 4 Mg/2 Ml Vial IV 11/26/22 13:30 4 mg STAT ONE Administration Ondansetron HCl Confirm 11/26/22 14:08 Ondansetron Hcl 4 Mg/2 Ml Vial Administered 11/26/22 14:09 Dose 4 mg .ROUTE .STK-MED ONE Potassium Chloride 40 meq 11/26/22 13:23 11/26/22 14:10 Potassium Chloride Tab 10 Meq Tab PO 11/26/22 13:24 40 meq STAT ONE Administration Potassium Chloride Confirm 11/26/22 14:08 Potassium Chloride Tab 10 Meq Tab Administered 11/26/22 14:09 Dose 40 meq PO .STK-MED ONE Intake & Output (Last 24 hours) 11/24/22 11/25/22 11/26/22 11/27/22 11:59 11:59 11:59 11:59 Intake Total 360 Balance 360 Weight 42 kg 63.5 kg Laboratory Results (Last 24 hours) 11/26/22 11/26/22 11/26/22 15:19 09:45 09:45 WBC RBC Hgb Hct MCV MCH MCHC RDW Plt Count MPV Gran % Immature Gran % (Auto) Nucleat RBC Rel Count Eos # (Auto) Immature Gran # (Auto) Absolute Lymphs (auto) Absolute Monos (auto) Absolute Nucleated RBC Lymphocytes % Monocytes % Eosinophils % Basophils % Absolute Granulocytes Basophils # Sodium Direct 129 L Potassium 3.4 L Chloride 93 L Carbon Dioxide 27 Venous BUN 15 Creatinine 0.6 Glucose 123 H Ionized Calcium 1.10 L Troponin 0.00 Troponin I < 0.012 NT-Pro-B Natriuret Pep 725 Slides for Path Review 11/26/22 09:45 WBC 16.9 H RBC 4.30 Hgb 12.9 Hct 38.1 MCV 88.6 MCH 30.0 MCHC 33.9 RDW 13.0 Plt Count 178 MPV 11.9 H Gran % 77.7 H Immature Gran % (Auto) 1.1 H Nucleat RBC Rel Count 0.0 Eos # (Auto) 0.09 Immature Gran # (Auto) 0.19 H Absolute Lymphs (auto) 1.10 Absolute Monos (auto) 2.35 H Absolute Nucleated RBC 0.00 Lymphocytes % 6.5 L Monocytes % 13.9 H Eosinophils % 0.5 Basophils % 0.3 Absolute Granulocytes 13.15 H Basophils # 0.05 Sodium Direct Potassium Chloride Carbon Dioxide Venous BUN Creatinine Glucose Ionized Calcium Troponin Troponin I NT-Pro-B Natriuret Pep Slides for Path Review YES Orders (Last 24 hours) Category Date Time Status Bedrest ROUTINE Activity 11/26/22 14:40 Active Model Maker STAT Care 11/26/22 10:41 Completed Code Status Order ROUTINE Care 11/26/22 14:40 Active IV Care Q6H Care 11/26/22 14:40 Active IV Insertion STAT Care 11/26/22 10:[address] in Observation ROUTINE Care 11/26/22 14:40 Active Pulse Oximetry (ED) STAT Care 11/26/22 10:40 Completed Arlen Beckham ROUTINE Care 11/26/22 14:40 Active Telemetry q4h Care 11/26/22 14:40 Active Weight,Daily 0600 Care 11/26/22 14:40 Active House Regular Diet Diet 11/26/22 Dinner Active CHEST 1 VIEW (PORTABLE) Stat Exams 11/26/22 10:41 Completed CBC AM.LAB Lab 11/27/22 04:00 Ordered CBC W DIFF Stat Lab 11/26/22 09:45 Completed CMP AM.LAB Lab 11/27/22 04:00 Ordered NT PRO BNP Stat Lab 11/26/22 09:45 Completed TROPONIN Q4H Lab 11/26/22 15:19 Completed TROPONIN Q4H Lab 11/26/22 18:45 Ordered UA W/RFX UR CULTURE Stat Lab 11/26/22 10:41 Ordered Acetaminophen 325 mg [Tylenol 325 mg] Med 11/26/22 16:09 Active 650 mg PO Q4H PRN PRN Albuterol 2.5 mg/3 ml Neb [Proventil 2.5 mg/3 ml Neb Med 11/26/22 15:00 Active ] 2.5 mg IH Q4HRT Aspirin EC 325 mg [Ecotrin 325 MG] Med 11/27/22 10:00 Active 325 mg PO DAILY Levofloxacin [Levofloxacin 500MG/100ML D5W] Med 11/26/22 12:07 Discontinued 500 mg in 100 ml IV STAT Levofloxacin [Levofloxacin 500MG/100ML D5W] Med 11/26/22 12:31 Discontinued 500 mg in 100 ml IV UD Levofloxacin [Levofloxacin 750Mg/150Ml D5w] Med 11/28/22 10:00 Active 750 mg in 150 ml IV Q48H Methylprednis Sod Succ 125 mg* [solu-MEDROL] 60 mg Med 11/26/22 18:00 Active Water For Injection,Sterile [Sterile H2O 10 ml] 2 ml IV Q6HT NaCl 0.9% 1000 ml [Sodium Chloride 0.9% 1000 ML] 1,000 Med 11/26/22 14:09 Discontinued ml .ROUTE UD NaCl 0.9% 1000 ml [Sodium Chloride 0.9% 1000 ML] 1,000 Med 11/26/22 13:30 Discontinued ml IV 100 mls/hr NaCl 0.9% 1000 ml [Sodium Chloride 0.9% 1000 ML] 1,000 Med 11/26/22 14:40 Act krista ml IV 50 mls/hr Ondansetron HCl 4 mg/2 ml [Zofran 4 MG/2 ML VIAL] Med 11/26/22 14:08 Discontinued 4 mg .ROUTE .STK-MED ONE Ondansetron HCl 4 mg/2 ml [Zofran 4 MG/2 ML VIAL] Med 11/26/22 13:29 Discontinued 4 mg IV STAT ONE Patient Own Med [Patient Own Medication] Med 11/26/22 19:00 Active 2 each IH BIDRT Potassium Chloride Tab* [Klor Con] Med 11/26/22 14:08 Discontinued 40 meq PO .STK-MED ONE Potassium Chloride Tab* [Klor Con] Med 11/26/22 13:23 Discontinued 40 meq PO STAT ONE Oxygen Nasal Cannula 3 lpm RT 11/26/22 15:28 Active Pulse Oximetry CONTINUOUS RT 11/26/22 14:40 Active Respiratory MDI BID RT 11/26/22 17:18 Active Respiratory Therapy Assessment DAILY RT 11/26/22 15:27 Active Transfer Order Routine Transfer 11/26/22 Completed Code(s): J18.9 - PNEUMONIA, UNSPECIFIED ORGANISM (2) Cough Current Visit: Yes Status: Acute Code(s): R05.9 - COUGH, UNSPECIFIED
[2022-11-26] MEDS: solu-MEDROL 60 MG, Sterile H2O 10 ml 2 ML IV SCH ×4 (18:45→23:08)
[2022-11-26] MEDS: PATIENT OWN MEDICATION IH SCH (19:05)
[2022-11-26] MEDS: Sodium Chloride 0.9% 1000 ML 1,000 ML IV SCH (23:07)
[2022-11-27] MEDS: PROVENTIL 2.5 MG/3 ML NEB IH SCH ×6 (02:35→22:35)
[2022-11-27] MEDS: solu-MEDROL 60 MG, Sterile H2O 10 ml 2 ML IV SCH ×6 (05:16→17:53)
[2022-11-27 05:32] LABS: Hematocrit 37.2 % (35-47); Mean Cell Volume 91.2 fL (78-100); Mean Corpuscular Hemoglobin 29.4 pg (26-32); Mean Corpuscular Hgb Concent. 32.3 g/dL (32-36); Mean Platelet Volume 11.1 fL (7.5-11.0); Platelet Count 198 x10^3/uL (150-450); Red Blood Count 4.08 x10^6/uL (4.1-5.4); Red Cell Distribution Width 13.2 % (11.5-14.0); White Blood Count 13.1 x10^3/uL (4.0-10.5)
[2022-11-27 06:18] LABS: ALKALINE PHOSPHATASE 110 U/L (38-126); BLOOD UREA NITROGEN 10 mg/dL (7-17); CHLORIDE 102 mmol/L (98-107); Calcium 7.8 mg/dL (8.4-10.2); Carbon Dioxide 29 mmol/L (22-30); Creatinine 1 0.47 mg/dL (0.52-1.04); EST GLOMERULAR FILTRATION RATE > 60.0 ML/MIN; Glucose 208 mg/dL (74-106); Potassium 3.4 mmol/L (3.5-5.1); SGOT/AST 22 U/L (14-36); SGPT/ALT 24 U/L (0-35); SODIUM 135 mmol/L (137-145); Total Protein 6.3 g/dL (6.3-8.2)
[2022-11-27] MEDS: PATIENT OWN MEDICATION IH SCH ×2 (07:09→18:47)
--- NOTE | 2022-11-27 08:11 | PCM.NOTE ---
Date and Time: 11/27/22809 Subjective Assessment: doing better - Review of Systems Constitutional: No Fever, No Chills Eyes: No Symptoms Ears, Nose, & Throat: No Symptoms Respiratory: Cough, Short Of Breath, Wheezing Cardiac: No Chest Pain, No Edema, No Syncope Abdominal/Gastrointestinal: No Abdominal Pain, No Nausea, No Vomiting, No Diarrhea Genitourinary Symptoms: No Dysuria Musculoskeletal: No Back Pain, No Neck Pain Skin: No Rash Neurological: No Dizziness, No Focal Weakness, No Sensory Changes Psychological: No Symptoms Endocrine: No Symptoms Hematologic/Lymphatic: No Symptoms Immunological/Allergic: No Symptoms Objective Exam General Appearance: no apparent distress, alert Neurologic Exam: alert, oriented x 3, cooperative, normal mood/affect, nml cerebellar function, sensation nml, No motor deficits Skin Exam: normal color, warm, dry Eye Exam: PERRL, EOMI, eyes nml inspection Ears, Nose, Throat Exam: normal ENT inspection, pharynx normal, moist mucous membranes Neck Exam: normal inspection, non-tender, supple, full range of motion Respiratory Exam: diminished breath sounds, crackles/rales, rhonchi, wheezing, No respiratory distress Cardiovascular Exam: regular rate/rhythm, normal heart sounds Gastrointestinal/Abdomen Exam: soft, No tenderness, No mass Extremity Exam: normal inspection, normal range of motion Back Exam: normal inspection, normal range of motion, No CVA tenderness, No vertebral tenderness Pelvic Exam: deferred Rectal Exam: deferred OBJECTIVE DATA Vital Signs: Vital Signs - 24 hr Temp Pulse Resp BP Pulse Ox 11/27/22 07:51 98.0 F 89 16 116/64 90 L 11/27/22 07:37 86 16 91 L 11/27/22 04:00 97.0 F 91 H 22 113/57 94 L 11/27/22 02:35 87 18 93 L 11/26/22 23:34 97.0 F 82 19 105/73 92 L 11/26/22 23:03 72 18 93 L 11/26/22 19:34 97.7 F 77 18 119/56 99 11/26/22 18:54 77 18 99 11/26/22 16:00 101.5 F 100 H 16 141/63 90 L 11/26/22 15:35 100 H 16 90 L 11/26/22 15:00 90 L 11/26/22 14:48 72 18 96 11/26/22 14:40 101.5 F 105 H 20 141/63 90 L 11/26/22 13:55 91 L 11/26/22 13:17 98 H 20 145/86 90 L 11/26/22 12:00 98 H 28 H 125/86 88 L 11/26/22 11:29 97 H 28 H 147/70 92 L 11/26/22 10:58 92 L 11/26/22 10:24 22 113/61 91 L Pain Assessment - Last Documented Pain Intensity 0 Intake and Output: Intake & Output 11/24/22 11/25/22 11/26/22 11/27/22 11:59 11:59 11:59 11:59 Intake Total 1699 Output Total 500 Balance 1199 Weight 42 kg 63.2 kg Lab Results: Lab Results-Last 24 Hours 11/26/22 11/26/22 11/26/22 Range/Units 09:45 09:45 09:45 WBC 16.9 H (4.0-10.5) x10^3/uL RBC 4.30 (4.1-5.4) x10^6/uL Hgb 12.9 (12.0-16.0) g/dL Hct 38.1 (35-47) % MCV 88.6 (78-100) fL MCH 30.0 (26-32) pg MCHC 33.9 (32-36) g/dL RDW 13.0 (11.5-14.0) % Plt Count 178 (150-450) x10^3/uL MPV 11.9 H (7.5-11.0) fL Gran % 77.7 H (36.0-66.0) % Immature Gran % (Auto) 1.1 H (0.00-0.4) % Nucleat RBC Rel Count 0.0 (0.00-0.1) % Eos # (Auto) 0.09 (0-0.5) x10^3/uL Immature Gran # (Auto) 0.19 H (0.00-0.03) x10^3u/L Absolute Lymphs (auto) 1.10 (1.0-4.6) x10^3/uL Absolute Monos (auto) 2.35 H (0.0-1.3) x10^3/uL Absolute Nucleated RBC 0.00 (0.00-0.01) x10^3u/L Lymphocytes % 6.5 L (24.0-44.0) % Monocytes % 13.9 H (0.0-12.0) % Eosinophils % 0.5 (0.00-5.0) % Basophils % 0.3 (0.0-0.4) % Absolute Granulocytes 13.15 H (1.4-6.9) x10^3/uL Basophils # 0.05 (0-0.4) x10^3/uL Sodium (137-145) mmol/L Sodium Direct 129 L (138-146) mmol/L Potassium 3.4 L (3.5-4.9) mmol/L Chloride 93 L (98-109) mmol/L Carbon Dioxide 27 (24-29) mmol/L Anion Gap (5-15) MEQ/L BUN (7-17) mg/dL Venous BUN 15 (8-26) mg/dL Creatinine 0.6 (0.6-1.3) mg/dL Estimated GFR ML/MIN Glucose 123 H (70-105) mg/dL Calcium (8.4-10.2) mg/dL Ionized Calcium 1.10 L (1.12-1.32) mmol/L Total Bilirubin (0.2-1.3) mg/dL AST (14-36) U/L ALT (0-35) U/L Alkaline Phosphatase (38-126) U/L Troponin 0.00 (0.00-0.03) ng/mL Troponin I (0.000-0.034) ng/mL NT-Pro-B Natriuret Pep 725 (0-900) pg/mL Serum Total Protein (6.3-8.2) g/dL Albumin (3.5-5.0) g/dL Slides for Path Review YES 11/26/22 11/26/22 11/27/22 Range/Units 15:19 18:17 04:20 WBC 13.1 H (4.0-10.5) x10^3/uL RBC 4.08 L (4.1-5.4) x10^6/uL Hgb 12.0 (12.0-16.0) g/dL Hct 37.2 (35-47) % MCV 91.2 (78-100) fL MCH 29.4 (26-32) pg MCHC 32.3 (32-36) g/dL RDW 13.2 (11.5-14.0) % Plt Count 198 (150-450) x10^3/uL MPV 11.1 H (7.5-11.0) fL Gran % (36.0-66.0) % Immature Gran % (Auto) (0.00-0.4) % Nucleat RBC Rel Count (0.00-0.1) % Eos # (Auto) (0-0.5) x10^3/uL Immature Gran # (Auto) (0.00-0.03) x10^3u/L Absolute Lymphs (auto) (1.0-4.6) x10^3/uL Absolute Monos (auto) (0.0-1.3) x10^3/uL Absolute Nucleated RBC (0.00-0.01) x10^3u/L Lymphocytes % (24.0-44.0) % Monocytes % (0.0-12.0) % Eosinophils % (0.00-5.0) % Basophils % (0.0-0.4) % Absolute Granulocytes (1.4-6.9) x10^3/uL Basophils # (0-0.4) x10^3/uL Sodium (137-145) mmol/L Sodium Direct (138-146) mmol/L Potassium (3.5-4.9) mmol/L Chloride (98-109) mmol/L Carbon Dioxide (24-29) mmol/L Anion Gap (5-15) MEQ/L BUN (7-17) mg/dL Venous BUN (8-26) mg/dL Creatinine (0.6-1.3) mg/dL Estimated GFR ML/MIN Glucose (70-105) mg/dL Calcium (8.4-10.2) mg/dL Ionized Calcium (1.12-1.32) mmol/L Total Bilirubin (0.2-1.3) mg/dL AST (14-36) U/L ALT (0-35) U/L Alkaline Phosphatase (38-126) U/L Troponin (0.00-0.03) ng/mL Troponin I < 0.012 < 0.012 (0.000-0.034) ng/mL NT-Pro-B Natriuret Pep (0-900) pg/mL Serum Total Protein (6.3-8.2) g/dL Albumin (3.5-5.0) g/dL Slides for Path Review 11/27/22 Range/Units 04:20 WBC (4.0-10.5) x10^3/uL RBC (4.1-5.4) x10^6/uL Hgb (12.0-16.0) g/dL Hct (35-47) % MCV (78-100) fL MCH (26-32) pg MCHC (32-36) g/dL RDW (11.5-14.0) % Plt Count (150-450) x10^3/uL MPV (7.5-11.0) fL Gran % (36.0-66.0) % Immature Gran % (Auto) (0.00-0.4) % Nucleat RBC Rel Count (0.00-0.1) % Eos # (Auto) (0-0.5) x10^3/uL Immature Gran # (Auto) (0.00-0.03) x10^3u/L Absolute Lymphs (auto) (1.0-4.6) x10^3/uL Absolute Monos (auto) (0.0-1.3) x10^3/uL Absolute Nucleated RBC (0.00-0.01) x10^3u/L Lymphocytes % (24.0-44.0) % Monocytes % (0.0-12.0) % Eosinophils % (0.00-5.0) % Basophils % (0.0-0.4) % Absolute Granulocytes (1.4-6.9) x10^3/uL Basophils # (0-0.4) x10^3/uL Sodium 135 L (137-145) mmol/L Sodium Direct (138-146) mmol/L Potassium 3.4 L (3.5-4.9) mmol/L Chloride 102 (98-109) mmol/L Carbon Dioxide 29 (24-29) mmol/L Anion Gap 8.0 (5-15) MEQ/L BUN 10 (7-17) mg/dL Venous BUN (8-26) mg/dL Creatinine 0.47 L (0.6-1.3) mg/dL Estimated GFR > 60.0 ML/MIN Glucose 208 H (70-105) mg/dL Calcium 7.8 L (8.4-10.2) mg/dL Ionized Calcium (1.12-1.32) mmol/L Total Bilirubin 0.60 (0.2-1.3) mg/dL AST 22 (14-36) U/L ALT 24 (0-35) U/L Alkaline Phosphatase 110 (38-126) U/L Troponin (0.00-0.03) ng/mL Troponin I (0.000-0.034) ng/mL NT-Pro-B Natriuret Pep (0-900) pg/mL Serum Total Protein 6.3 (6.3-8.2) g/dL Albumin 3.0 L (3.5-5.0) g/dL Slides for Path Review Radiology Exams: Radiology Procedures Category Date Time Status CHEST 1 VIEW (PORTABLE) Stat Exams 11/26/22 10:41 Completed Assessment/Plan (1) Bilateral pneumonia Current Visit: Yes Status: Acute Qualifiers: Pneumonia type: due to Pneumococcus Lung location: lower lobe of lung Qualified Code(s): J13 - Pneumonia due to Streptococcus pneumoniae Assessment & Plan: Chief Complaint Diagnosis Pneumonia Allergies Allergy/AdvReac Type Severity Reaction Status Date / Time cephalexin monohydrate Allergy Severe Verified 11/26/22 09:29 [From Keflex] nitroglycerin Allergy Severe Verified 11/26/22 09:29 Vital Signs (Last 24 hours) Temp Pulse Resp BP Pulse Ox 11/27/22 07:51 98.0 F 89 16 116/64 90 L 11/27/22 07:37 86 16 91 L 11/27/22 04:00 97.0 F 91 H 22 113/57 94 L 11/27/22 02:35 87 18 93 L 11/26/22 23:34 97.0 F 82 19 105/73 92 L 11/26/22 23:03 72 18 93 L 11/26/22 19:34 97.7 F 77 18 119/56 99 11/26/22 18:54 77 18 99 11/26/22 16:00 101.5 F 100 H 16 141/63 90 L 11/26/22 15:35 100 H 16 90 L 11/26/22 15:00 90 L 11/26/22 14:48 72 18 96 11/26/22 14:40 101.5 F 105 H 20 141/63 90 L 11/26/22 13:55 91 L 11/26/22 13:17 98 H 20 145/86 90 L 11/26/22 12:00 98 H 28 H 125/86 88 L 11/26/22 11:29 97 H 28 H 147/70 92 L 11/26/22 10:58 92 L 11/26/22 10:24 22 113/61 91 L Home Medications Medication Instructions Recorded Confirmed Last Taken Type Budesonide/Formoterol Fumarate 10.2 gm IH BID 11/26/22 11/26/22 11/26/22 History [Budesonide-Formoterol 160-4.5] Current Medications Generic Name Dose Route Start Last Admin Trade Name Freq PRN Reason Stop Dose Admin Acetaminophen 650 mg 11/26/22 16:09 11/26/22 16:27 Acetaminophen 325 Mg Tablet PO 12/26/22 16:08 650 mg Q4H PRN PRN Administration PAIN AND/OR FEVER Albuterol Sulfate 2.5 mg 11/26/22 15:00 11/27/22 07:07 Albuterol Sulfate 2.5 Mg/3 Ml Neb IH 12/26/22 14:59 2.5 mg Q4HRT STELLA Administration Aspirin 325 mg 11/27/22 10:00 Aspirin 325 Mg Tablet.Ec PO 12/27/22 09:59 DAILY STELLA Methylprednisolone Sodium 0 mg 11/26/22 18:00 11/27/22 05:16 Succinate 60 mg/ Sterile Water IV 12/26/22 17:59 60 mg 2 ml Q6HT STELLA Administration Sodium Chloride 1,000 mls @ 50 mls/hr 11/26/22 14:40 11/26/22 23:07 Sodium Chloride 0.9% 1000 Ml IV 12/26/22 14:39 50 mls/hr .Q20H STELLA Administration Levofloxacin/Dextrose 750 mg in 150 mls @ 100 mls/hr 11/28/22 10:00 Levofloxacin 750mg/150ml D5w IV 12/28/22 09:59 Q48H STELLA Symbicort 160/4.5 - 2 each 11/26/22 19:00 11/27/22 07:09 Patient Own 12/26/22 18:59 2 each BIDRT STELLA Administration Discontinued Medications Generic Name Dose Route Start Last Admin Trade Name Zulma PRN Reason Stop Dose Admin Levofloxacin/Dextrose 500 mg in 100 mls @ 100 mls/hr 11/26/22 12:07 11/26/22 14:10 Levofloxacin 500mg/100ml D5w IV 11/26/22 13:06 Infused STAT STA Infusion Levofloxacin/Dextrose Confirm 11/26/22 12:31 Levofloxacin 500mg/100ml D5w Administered 11/26/22 12:32 Dose 500 mg in 100 mls @ ud IV .STK-MED ONE Sodium Chloride 1,000 mls @ 100 mls/hr 11/26/22 13:30 11/26/22 14:10 Sodium Chloride 0.9% 1000 Ml IV 12/26/22 13:29 100 mls/hr .Q10H STELLA Administration Sodium Chloride Confirm 11/26/22 14:09 Sodium Chloride 0.9% 1000 Ml Administered 11/26/22 14:10 Dose 1,000 mls @ ud .ROUTE .STK-MED ONE Ondansetron HCl 4 mg 11/26/22 13:29 11/26/22 14:10 Ondansetron Hcl 4 Mg/2 Ml Vial IV 11/26/22 13:30 4 mg STAT ONE Administration Ondansetron HCl Confirm 11/26/22 14:08 Ondansetron Hcl 4 Mg/2 Ml Vial Administered 11/26/22 14:09 Dose 4 mg .ROUTE .STK-MED ONE Potassium Chloride 40 meq 11/26/22 13:23 11/26/22 14:10 Potassium Chloride Tab 10 Meq Tab PO 11/26/22 13:24 40 meq STAT ONE Administration Potassium Chloride Confirm 11/26/22 14:08 Potassium Chloride Tab 10 Meq Tab Administered 11/26/22 14:09 Dose 40 meq PO .STK-MED ONE Intake & Output (Last 24 hours) 11/24/22 11/25/22 11/26/22 11/27/22 11:59 11:59 11:59 11:59 Intake Total 1699 Output Total 500 Balance 1199 Weight 42 kg 63.2 kg Laboratory Results (Last 24 hours) 11/27/22 11/27/22 11/26/22 04:20 04:20 18:17 WBC 13.1 H RBC 4.08 L Hgb 12.0 Hct 37.2 MCV 91.2 MCH 29.4 MCHC 32.3 RDW 13.2 Plt Count 198 MPV 11.1 H Gran % Immature Gran % (Auto) Nucleat RBC Rel Count Eos # (Auto) Immature Gran # (Auto) Absolute Lymphs (auto) Absolute Monos (auto) Absolute Nucleated RBC Lymphocytes % Monocytes % Eosinophils % Basophils % Absolute Granulocytes Basophils # Sodium 135 L Sodium Direct Potassium 3.4 L Chloride 102 Carbon Dioxide 29 Anion Gap 8.0 BUN 10 Venous BUN Creatinine 0.47 L Estimated GFR > 60.0 Glucose 208 H Calcium 7.8 L Ionized Calcium Total Bilirubin 0.60 AST 22 ALT 24 Alkaline Phosphatase 110 Troponin Troponin I < 0.012 NT-Pro-B Natriuret Pep Serum Total Protein 6.3 Albumin 3.0 L Slides for Path Review 11/26/22 11/26/22 11/26/22 15:19 09:45 09:45 WBC RBC Hgb Hct MCV MCH MCHC RDW Plt Count MPV Gran % Immature Gran % (Auto) Nucleat RBC Rel Count Eos # (Auto) Immature Gran # (Auto) Absolute Lymphs (auto) Absolute Monos (auto) Absolute Nucleated RBC Lymphocytes % Monocytes % Eosinophils % Basophils % Absolute Granulocytes Basophils # Sodium Sodium Direct 129 L Potassium 3.4 L Chloride 93 L Carbon Dioxide 27 Anion Gap BUN Venous BUN 15 Creatinine 0.6 Estimated GFR Glucose 123 H Calcium Ionized Calcium 1.10 L Total Bilirubin AST ALT Alkaline Phosphatase Troponin 0.00 Troponin I < 0.012 NT-Pro-B Natriuret Pep 725 Serum Total Protein Albumin Slides for Path Review 11/26/22 09:45 WBC 16.9 H RBC 4.30 Hgb 12.9 Hct 38.1 MCV 88.6 MCH 30.0 MCHC 33.9 RDW 13.0 Plt Count 178 MPV 11.9 H Gran % 77.7 H Immature Gran % (Auto) 1.1 H Nucleat RBC Rel Count 0.0 Eos # (Auto) 0.09 Immature Gran # (Auto) 0.19 H Absolute Lymphs (auto) 1.10 Absolute Monos (auto) 2.35 H Absolute Nucleated RBC 0.00 Lymphocytes % 6.5 L Monocytes % 13.9 H Eosinophils % 0.5 Basophils % 0.3 Absolute Granulocytes 13.15 H Basophils # 0.05 Sodium Sodium Direct Potassium Chloride Carbon Dioxide Anion Gap BUN Venous BUN Creatinine Estimated GFR Glucose Calcium Ionized Calcium Total Bilirubin AST ALT Alkaline Phosphatase Troponin Troponin I NT-Pro-B Natriuret Pep Serum Total Protein Albumin Slides for Path Review YES Orders (Last 24 hours) Category Date Time Status Bedrest ROUTINE Activity 11/26/22 14:40 Active Gasoline Attendant STAT Care 11/26/22 10:41 Completed Code Status Order ROUTINE Care 11/26/22 14:40 Active IV Care Q6H Care 11/26/22 14:40 Active IV Insertion STAT Care 11/26/22 10:[address] in Observation ROUTINE Care 11/26/22 14:40 Active Pulse Oximetry (ED) STAT Care 11/26/22 10:40 Completed Jamshid Rubie, Apply ROUTINE Care 11/26/22 14:40 Active Telemetry q4h Care 11/26/22 14:40 Active Weight,Daily 0600 Care 11/26/22 14:40 Active House Regular Diet Diet 11/26/22 Dinner Active CHEST 1 VIEW (PORTABLE) Stat Exams 11/26/22 10:41 Completed CBC AM.LAB Lab 11/27/22 04:20 Completed CBC W DIFF Stat Lab 11/26/22 09:45 Completed CMP AM.LAB Lab 11/27/22 04:20 Completed NT PRO BNP Stat Lab 11/26/22 09:45 Completed TROPONIN Q4H Lab 11/26/22 15:19 Completed TROPONIN Q4H Lab 11/26/22 18:17 Completed UA W/RFX UR CULTURE Stat Lab 11/26/22 19:51 Ordered Acetaminophen 325 mg [Tylenol 325 mg] Med 11/26/22 16:09 Active 650 mg PO Q4H PRN PRN Albuterol 2.5 mg/3 ml Neb [Proventil 2.5 mg/3 ml Neb Med 11/26/22 15:00 Active ] 2.5 mg IH Q4HRT Aspirin EC 325 mg [Ecotrin 325 MG] Med 11/27/22 10:00 Active 325 mg PO DAILY Levofloxacin [Levofloxacin 500MG/100ML D5W] Med 11/26/22 12:07 Discontinued 500 mg in 100 ml IV STAT Levofloxacin [Levofloxacin 500MG/100ML D5W] Med 11/26/22 12:31 Discontinued 500 mg in 100 ml IV UD Levofloxacin [Levofloxacin 750Mg/150Ml D5w] Med 11/28/22 10:00 Active 750 mg in 150 ml IV Q48H Methylprednis Sod Succ 125 mg* [solu-MEDROL] 60 mg Med 11/26/22 18:00 Active Water For Injection,Sterile [Sterile H2O 10 ml] 2 ml IV Q6HT NaCl 0.9% 1000 ml [Sodium Chloride 0.9% 1000 ML] 1,000 Med 11/26/22 14:09 Discontinued ml .ROUTE UD NaCl 0.9% 1000 ml [Sodium Chloride 0.9% 1000 ML] 1,000 Med 11/26/22 13:30 Discontinued ml IV 100 mls/hr NaCl 0.9% 1000 ml [Sodium Chloride 0.9% 1000 ML] 1,000 Med 11/26/22 14:40 Active ml IV 50 mls/hr Ondansetron HCl 4 mg/2 ml [Zofran 4 MG/2 ML VIAL] Med 11/26/22 14:08 Discontinued 4 mg .ROUTE .STK-MED ONE Ondansetron HCl 4 mg/2 ml [Zofran 4 MG/2 ML VIAL] Med 11/26/22 13:29 Discontinued 4 mg IV STAT ONE Patient Own Med [Patient Own Medication] Med 11/26/22 19:00 Active 2 each IH BIDRT Potassium Chloride Tab* [Klor Con] Med 11/26/22 14:08 Discontinued 40 meq PO .STK-MED ONE Potassium Chloride Tab* [Klor Con] Med 11/26/22 13:23 Discontinued 40 meq PO STAT ONE Oxygen Nasal Cannula 3 lpm RT 11/26/22 15:28 Active Pulse Oximetry CONTINUOUS RT 11/26/22 14:40 Active Respiratory MDI BID RT 11/26/22 17:18 Active Respiratory Therapy Assessment DAILY RT 11/26/22 15:27 Active Code(s): J18.9 - PNEUMONIA, UNSPECIFIED ORGANISM (2) Cough Current Visit: Yes Status: Acute Code(s): R05.9 - COUGH, UNSPECIFIED
[2022-11-27] MEDS: Ecotrin 325 MG PO SCH (08:52)
[2022-11-27] MEDS ORDERED: LEVOFLOXACIN 750MG/150ML D5W 750 MG/150 ML BAG IV SCH (10:00)
[2022-11-27] MEDS: Sodium Chloride 0.9% 1000 ML 1,000 ML IV SCH (19:42)
[2022-11-28] MEDS ORDERED: solu-MEDROL ONE (00:12)
[2022-11-28] MEDS: solu-MEDROL 60 MG, Sterile H2O 10 ml 2 ML IV SCH ×4 (00:28→06:35)
[2022-11-28] MEDS: PROVENTIL 2.5 MG/3 ML NEB IH SCH ×4 (02:58→14:29)
[2022-11-28] MEDS: PATIENT OWN MEDICATION IH SCH (05:43)
[2022-11-28 08:15] LABS: Hemoglobin 12.5 g/dL (12.0-16.0); Mean Cell Volume 92.9 fL (78-100); Mean Corpuscular Hemoglobin 29.8 pg (26-32); Mean Corpuscular Hgb Concent. 32.1 g/dL (32-36); Mean Platelet Volume 10.6 fL (7.5-11.0); Platelet Count 288 x10^3/uL (150-450); Red Cell Distribution Width 13.5 % (11.5-14.0); White Blood Count 16.6 x10^3/uL (4.0-10.5)
[2022-11-28 08:44] LABS: ANION GAP 7.7 MEQ/L (5-15); BLOOD UREA NITROGEN 15 mg/dL (7-17); CHLORIDE 103 mmol/L (98-107); Calcium 8.2 mg/dL (8.4-10.2); Carbon Dioxide 33 mmol/L (22-30); Creatinine 1 0.51 mg/dL (0.52-1.04); EST GLOMERULAR FILTRATION RATE > 60.0 ML/MIN; Glucose 141 mg/dL (74-106); Potassium 3.1 mmol/L (3.5-5.1); SODIUM 140 mmol/L (137-145)
[2022-11-28] MEDS: Ecotrin 325 MG PO SCH (09:16)
[2022-11-28] MEDS ORDERED: LEVOFLOXACIN 750MG/150ML D5W 750 MG/150 ML BAG IV SCH (10:00)
[2022-11-28 12:09] VITALS: BP 134/58
--- NOTE | 2022-11-28 13:02 | PCM.DS ---
Discharge Summary Date of Admission: 11/26/22 14:37 Admitting Physician: NIYA FELICIANO Primary Care Provider: NIYA FELICIANO Allergies Allergies cephalexin monohydrate [From Keflex] Allergy (Severe, Verified 11/26/22 09:29) nitroglycerin Allergy (Severe, Verified 11/26/22 09:29) cardiac arrest Hospital Summary - Hospital Course Hospital Course: Chief Complaint Diagnosis Pneumonia Allergies Allergy/AdvReac Type Severity Reaction Status Date / Time cephalexin monohydrate Allergy Severe Verified 11/26/22 09:29 [From Keflex] nitroglycerin Allergy Severe Verified 11/26/22 09:29 Vital Signs (Last 24 hours) Temp Pulse Resp BP Pulse Ox 11/28/22 12:00 97.3 F 90 18 134/58 93 L 11/28/22 10:21 87 16 95 11/28/22 07:23 97.5 F 72 20 116/60 91 L 11/28/22 05:41 72 18 96 11/28/22 04:00 97.9 F 86 18 130/59 92 L 11/28/22 02:58 79 18 95 11/27/22 23:50 97.9 F 77 18 126/56 91 L 11/27/22 22:35 76 18 95 11/27/22 20:00 98.1 F 79 18 127/61 94 L 11/27/22 18:47 78 18 93 L 11/27/22 16:00 98.0 F 81 16 118/58 92 L 11/27/22 15:25 88 16 94 L Home Medications Medication Instructions Recorded Confirmed Last Taken Type Budesonide/Formoterol Fumarate 10.2 gm IH BID 11/26/22 11/26/22 11/26/22 History [Budesonide-Formoterol 160-4.5] Current Medications Generic Name Dose Route Start Last Admin Trade Name Freq PRN Reason Stop Dose Admin Acetaminophen 650 mg 11/26/22 16:09 11/26/22 16:27 Acetaminophen 325 Mg Tablet PO 12/26/22 16:08 650 mg Q4H PRN PRN Administration PAIN AND/OR FEVER Albuterol Sulfate 2.5 mg 11/26/22 15:00 11/28/22 10:21 Albuterol Sulfate 2.5 Mg/3 Ml Neb IH 12/26/22 14:59 2.5 mg Q4HRT STELLA Administration Aspirin 325 mg 11/27/22 10:00 11/28/22 09:16 Aspirin 325 Mg Tablet.Ec PO 12/27/22 09:59 325 mg DAILY STELLA Administration Methylprednisolone Sodium 0 mg 11/26/22 18:00 11/28/22 06:35 Succinate 60 mg/ Sterile Water IV 12/26/22 17:59 Not Given 2 ml Q6HT STELLA Levofloxacin/Dextrose 750 mg in 150 mls @ 100 mls/hr 11/28/22 10:00 Levofloxacin 750mg/150ml D5w IV 12/28/22 09:59 Q48H STELLA Symbicort 160/4.5 - 2 each 11/26/22 19:00 11/28/22 05:43 Patient Own IH 12/26/22 18:59 2 each BIDRT STELLA Administration Discontinued Medications Generic Name Dose Route Start Last Admin Trade Name Freq PRN Reason Stop Dose Admin Levofloxacin/Dextrose 500 mg in 100 mls @ 100 mls/hr 11/26/22 12:07 11/26/22 14:10 Levofloxacin 500mg/100ml D5w IV 11/26/22 13:06 Infused STAT STA Infusion Levofloxacin/Dextrose Confirm 11/26/22 12:31 Levofloxacin 500mg/100ml D5w Administered 11/26/22 12:32 Dose 500 mg in 100 mls @ ud IV .STK-MED ONE Sodium Chloride 1,000 mls @ 100 mls/hr 11/26/22 13:30 11/26/22 14:10 Sodium Chloride 0.9% 1000 Ml IV 12/26/22 13:29 100 mls/hr .Q10H STELLA Administration Sodium Chloride Confirm 11/26/22 14:09 Sodium Chloride 0.9% 1000 Ml Administered 11/26/22 14:10 Dose 1,000 mls @ ud .ROUTE .STK-MED ONE Sodium Chloride 1,000 mls @ 50 mls/hr 11/26/22 14:40 11/27/22 19:42 Sodium Chloride 0.9% 1000 Ml IV 12/26/22 14:39 50 mls/hr .Q20H STELLA Administration Methylprednisolone Sodium Succinate Confirm 11/28/22 00:12 Methylprednis Sod Succ 125 Mg/2 Ml Vial Administered 11/28/22 00:13 Dose 125 mg .ROUTE .STK-MED ONE Ondansetron HCl 4 mg 11/26/22 13:29 11/26/22 14:10 Ondansetron Hcl 4 Mg/2 Ml Vial IV 11/26/22 13:30 4 mg STAT ONE Administration Ondansetron HCl Confirm 11/26/22 14:08 Ondansetron Hcl 4 Mg/2 Ml Vial Administered 11/26/22 14:09 Dose 4 mg .ROUTE .STK-MED ONE Potassium Chloride 40 meq 11/26/22 13:23 11/26/22 14:10 Potassium Chloride Tab 10 Meq Tab PO 11/26/22 13:24 40 meq STAT ONE Administration Potassium Chloride Confirm 11/26/22 14:08 Potassium Chloride Tab 10 Meq Tab Administered 11/26/22 14:09 Dose 40 meq PO .STK-MED ONE Intake & Output (Last 24 hours) 11/26/22 11/27/22 11/28/22 11/29/22 11:59 11:59 11:59 11:59 Intake Total 2279 1070 Output Total 500 Balance 1779 1070 Weight 42 kg 63.2 kg 63.1 kg Laboratory Results (Last 24 hours) 11/28/22 11/28/22 08:09 08:09 WBC 16.6 H RBC 4.20 Hgb 12.5 Hct 39.0 MCV 92.9 MCH 29.8 MCHC 32.1 RDW 13.5 Plt Count 288 D MPV 10.6 Sodium 140 Potassium 3.1 L Chloride 103 Carbon Dioxide 33 H Anion Gap 7.7 BUN 15 Creatinine 0.51 L Estimated GFR > 60.0 Glucose 141 H Calcium 8.2 L Orders (Last 24 hours) Category Date Time Status Discharge Routine Discharge 11/28/22 Unverified BMP Urgent Lab 11/28/22 08:09 Completed CBC Urgent Lab 11/28/22 08:09 Completed Levofloxacin [Levofloxacin 750Mg/150Ml D5w] Med 11/28/22 10:00 Active 750 mg in 150 ml IV Q48H Methylprednis Sod Succ 125 mg* [solu-MEDROL] Med 11/28/22 00:12 Discontinued 125 mg .ROUTE .STK-MED ONE Patient Care Notes (Last 24 hours) 11/28/22 09:44 Respiratory Note by Mary Antony ROOM AIR SPO2 AT REST 91%. ROOM AIR AMBULATION SPO2 83%. PLACED ON N/C 2LPM SPO2 N93%. Initialized on 11/28/22 09:44 - END OF NOTE - Vitals & Intake/Output Vital Signs: Vital Signs Temperature 97.3 F 11/28/22 12:00 Pulse Rate 90 11/28/22 12:00 Respiratory Rate 18 11/28/22 12:00 Blood Pressure 134/58 11/28/22 12:00 O2 Sat by Pulse Oximetry 93 L 11/28/22 12:00 Intake & Output: Intake & Output 11/26/22 11/27/22 11/28/22 11/29/22 11:59 11:59 11:59 11:59 Intake Total 2279 1070 Output Total 500 Balance 1779 1070 Weight 42 kg 63.2 kg 63.1 kg - Lab Result Diagrams: 11/28/22 08:09 11/28/22 08:09 Lab Results-Last 24 Hrs: Lab Results-Last 24 Hours 11/28/22 11/28/22 Range/Units 08:09 08:09 WBC 16.6 H (4.0-10.5) x10^3/uL RBC 4.20 (4.1-5.4) x10^6/uL Hgb 12.5 (12.0-16.0) g/dL Hct 39.0 (35-47) % MCV 92.9 (78-100) fL MCH 29.8 (26-32) pg MCHC 32.1 (32-36) g/dL RDW 13.5 (11.5-14.0) % Plt Count 288 D (150-450) x10^3/uL MPV 10.6 (7.5-11.0) fL Sodium 140 (137-145) mmol/L Potassium 3.1 L (3.5-5.1) mmol/L Chloride 103 (98-107) mmol/L Carbon Dioxide 33 H (22-30) mmol/L Anion Gap 7.7 (5-15) MEQ/L BUN 15 (7-17) mg/dL Creatinine 0.51 L (0.52-1.04) mg/dL Estimated GFR > 60.0 ML/MIN Glucose 141 H (74-106) mg/dL Calcium 8.2 L (8.4-10.2) mg/dL - Procedures and Test Procedures and Tests throughout Hospitalization: Therapy Orders & Screens 11/26/22 15:27 Respiratory Therapy Assessment DAILY Comment: Diagnosis: Pneumonia 11/26/22 15:28 Oxygen Nasal Cannula 3 lpm Comment: Diagnosis: Pneumonia 11/26/22 17:18 Respiratory MDI BID Comment: Diagnosis: Pneumonia Discharge Exam General Appearance: no apparent distress, alert Neurologic Exam: alert, oriented x 3, cooperative, normal mood/affect, nml cerebellar function, sensation nml, No motor deficits Eye Exam: PERRL, EOMI, eyes nml inspection Ears, Nose, Throat Exam: normal ENT inspection, pharynx normal, moist mucous mem branes Neck Exam: normal inspection, non-tender, supple, full range of motion Respiratory Exam: diminished breath sounds, crackles/rales, rhonchi, wheezing, No respiratory distress Cardiovascular Exam: regular rate/rhythm, normal heart sounds Gastrointestinal/Abdomen Exam: soft, No tenderness, No mass Pelvic Exam: deferred Rectal Exam: deferred Back Exam: normal inspection, normal range of motion, No CVA tenderness, No ve rtebral tenderness Extremity Exam: normal inspection, normal range of motion Skin Exam: normal color, warm, dry Final Diagnosis/Problem List - Final Discharge Diagnosis/Problem (1) COPD exacerbation Current Visit: No Status: Acute Priority: High Assessment & Plan: Chief Complaint Diagnosis Pneumonia Allergies Allergy/AdvReac Type Severity Reaction Status Date / Time cephalexin monohydrate Allergy Severe Verified 11/26/22 09:29 [From Keflex] nitroglycerin Allergy Severe Verified 11/26/22 09:29 Vital Signs (Last 24 hours) Temp Pulse Resp BP Pulse Ox 11/28/22 12:00 97.3 F 90 18 134/58 93 L 11/28/22 10:21 87 16 95 11/28/22 07:23 97.5 F 72 20 116/60 91 L 11/28/22 05:41 72 18 96 11/28/22 04:00 97.9 F 86 18 130/59 92 L 11/28/22 02:58 79 18 95 11/27/22 23:50 97.9 F 77 18 126/56 91 L 11/27/22 22:35 76 18 95 11/27/22 20:00 98.1 F 79 18 127/61 94 L 11/27/22 18:47 78 18 93 L 11/27/22 16:00 98.0 F 81 16 118/58 92 L 11/27/22 15:25 88 16 94 L Home Medications Medication Instructions Recorded Confirmed Last Taken Type Budesonide/Formoterol Fumarate 10.2 gm IH BID 11/26/22 11/26/22 11/26/22 History [Budesonide-Formoterol 160-4.5] Current Medications Generic Name Dose Route Start Last Admin Trade Name Zulma PRN Reason Stop Dose Admin Acetaminophen 650 mg 11/26/22 16:09 11/26/22 16:27 Acetaminophen 325 Mg Tablet PO 12/26/22 16:08 650 mg Q4H PRN PRN Administration PAIN AND/OR FEVER Albuterol Sulfate 2.5 mg 11/26/22 15:00 11/28/22 10:21 Albuterol Sulfate 2.5 Mg/3 Ml Neb IH 12/26/22 14:59 2.5 mg Q4HRT STELLA Administration Aspirin 325 mg 11/27/22 10:00 11/28/22 09:16 Aspirin 325 Mg Tablet.Ec PO 12/27/22 09:59 325 mg DAILY STELLA Administration Methylprednisolone Sodium 0 mg 11/26/22 18:00 11/28/22 06:35 Succinate 60 mg/ Sterile Water IV 12/26/22 17:59 Not Given 2 ml Q6HT STELLA Levofloxacin/Dextrose 750 mg in 150 mls @ 100 mls/hr 11/28/22 10:00 Levofloxacin 750mg/150ml D5w IV 12/28/22 09:59 Q48H STELLA Symbicort 160/4.5 - 2 each 11/26/22 19:00 11/28/22 05:43 Patient Own 12/26/22 18:59 2 each BIDRT STELLA Administration Discontinued Medications Generic Name Dose Route Start Last Admin Trade Name Zulma PRN Reason Stop Dose Admin Levofloxacin/Dextrose 500 mg in 100 mls @ 100 mls/hr 11/26/22 12:07 11/26/22 14:10 Levofloxacin 500mg/100ml D5w IV 11/26/22 13:06 Infused STAT STA Infusion Levofloxacin/Dextrose Confirm 11/26/22 12:31 Levofloxacin 500mg/100ml D5w Administered 11/26/22 12:32 Dose 500 mg in 100 mls @ ud IV .STK-MED ONE Sodium Chloride 1,000 mls @ 100 mls/hr 11/26/22 13:30 11/26/22 14:10 Sodium Chloride 0.9% 1000 Ml IV 12/26/22 13:29 100 mls/hr .Q10H STELLA Administration Sodium Chloride Confirm 11/26/22 14:09 Sodium Chloride 0.9% 1000 Ml Administered 11/26/22 14:10 Dose 1,000 mls @ ud .ROUTE .STK-MED ONE Sodium Chloride 1,000 mls @ 50 mls/hr 11/26/22 14:40 11/27/22 19:42 Sodium Chloride 0.9% 1000 Ml IV 12/26/22 14:39 50 mls/hr .Q20H STELLA Administration Methylprednisolone Sodium Succinate Confirm 11/28/22 00:12 Methylprednis Sod Succ 125 Mg/2 Ml Vial Administered 11/28/22 00:13 Dose 125 mg .ROUTE .STK-MED ONE Ondansetron HCl 4 mg 11/26/22 13:29 11/26/22 14:10 Ondansetron Hcl 4 Mg/2 Ml Vial IV 11/26/22 13:30 4 mg STAT ONE Administration Ondansetron HCl Confirm 11/26/22 14:08 Ondansetron Hcl 4 Mg/2 Ml Vial Administered 11/26/22 14:09 Dose 4 mg .ROUTE .STK-MED ONE Potassium Chloride 40 meq 11/26/22 13:23 11/26/22 14:10 Potassium Chloride Tab 10 Meq Tab PO 11/26/22 13:24 40 meq STAT ONE Administration Potassium Chloride Confirm 11/26/22 14:08 Potassium Chloride Tab 10 Meq Tab Administered 11/26/22 14:09 Dose 40 meq PO .STK-MED ONE Intake & Output (Last 24 hours) 11/26/22 11/27/22 11/28/22 11/29/22 11:59 11:59 11:59 11:59 Intake Total 2279 1070 Output Total 500 Balance 1779 1070 Weight 42 kg 63.2 kg 63.1 kg Laboratory Results (Last 24 hours) 11/28/22 11/28/22 08:09 08:09 WBC 16.6 H RBC 4.20 Hgb 12.5 Hct 39.0 MCV 92.9 MCH 29.8 MCHC 32.1 RDW 13.5 Plt Count 288 D MPV 10.6 Sodium 140 Potassium 3.1 L Chloride 103 Carbon Dioxide 33 H Anion Gap 7.7 BUN 15 Creatinine 0.51 L Estimated GFR > 60.0 Glucose 141 H Calcium 8.2 L Orders (Last 24 hours) Category Date Time Status Discharge Routine Discharge 11/28/22 Ordered BMP Urgent Lab 11/28/22 08:09 Completed CBC Urgent Lab 11/28/22 08:09 Completed Levofloxacin [Levofloxacin 750Mg/150Ml D5w] Med 11/28/22 10:00 Active 750 mg in 150 ml IV Q48H Methylprednis Sod Succ 125 mg* [solu-MEDROL] Med 11/28/22 00:12 Discontinued 125 mg .ROUTE .STK-MED ONE Patient Care Notes (Last 24 hours) 11/28/22 13:03 Case Management Note by Autumn Monson OXYGEN ORDERED THRU [facility] [place] QUALIFIED. NEB MACHINE ALSO ORDERED THRU [facility] [place]. DELIVERY INSTRUCTIONS PLACED ON DC INSTRUCTIONS. NURSE AWARE TO SEND PATIENT HOME WITH PORTABLE TANK FROM [facility]. PRIMARY RN ALSO GIVEN PULSE OX TO SEND HOME WITH PATIENT AT TIME OF DC Initialized on 11/28/22 13:03 - END OF NOTE 11/28/22 09:44 Respiratory Note by Mary Antony ROOM AIR SPO2 AT REST 91%. ROOM AIR AMBULATION SPO2 83%. PLACED ON N/C 2LPM SPO2 N93%. Initialized on 11/28/22 09:44 - END OF NOTE Code(s): J44.1 - CHRONIC OBSTRUCTIVE PULMONARY DISEASE W (ACUTE) EXACERBATION (2) Bilateral pneumonia Current Visit: Yes Status: Acute Assessment & Plan: improved, will d/c home todays, see other orders Code(s): J18.9 - PNEUMONIA, UNSPECIFIED ORGANISM (3) Cough Current Visit: Yes Status: Acute Code(s): R05.9 - COUGH, UNSPECIFIED (4) Smoking greater than 40 pack years Current Visit: Yes Status: Acute Code(s): F17.210 - NICOTINE DEPENDENCE, CIGARETTES, UNCOMPLICATED (5) Respiratory failure Current Visit: No Status: Acute Code(s): J96.90 - RESPIRATORY FAILURE, UNSP, UNSP W HYPOXIA OR HYPERCAPNIA - Discharge Discharge Date: 11/28/22 Disposition: Home, Self-Care Condition: Stable Prescriptions: No Action Aspirin EC 325 mg [Ecotrin 325 MG] 325 mg PO DAILY Budesonide/Formoterol Fumarate [Budesonide-Formoterol 160-4.5] 10.2 gm IH BID Instructions: Oxygen Therapy, Adult (DC) Additional Instructions: WEAR 2L/NC AT ALL TIMES CALL [facility] [place] WHEN YOU LEAVE [facility] AT [phone] SO THEY CAN DELIVER YOUR HOME CONCENTRATOR NEBULIZER MACHINE ALSO ORDERED THRU [facility] [place]- THEY SHOULD DELIVER IT WITH HER CONCENTRATOR Follow up with: NIYA FELICIANO MD [Primary Care Provider] - 12/04/22 11:15 am (at [facility] )
[2022-11-28] MEDS ORDERED: DUONEB 0.5-3 MG/3 ml Neb IH ONE (14:26)
[2022-11-28 14:32] VITALS: PULSE 84; O2SAT 94
== END 2022-11-28 14:40 | disposition home or self-care (01) ==
LOC: ED 09:26 → MED SURG 14:37
PROVIDERS: ADMIT General Practice; ATTEND General Practice
DX: J44.1 Chronic obstructive pulmonary disease with (acute) exacerbation (principal); J18.9 Pneumonia, unspecified organism; R05.9 Cough, unspecified; F17.210 Nicotine dependence, cigarettes, uncomplicated; J96.90 Respiratory failure, unspecified, unspecified whether with hypoxia or hypercapnia; R07.9 Chest pain, unspecified; Z79.899 Other long term (current) drug therapy; Z20.828 Contact with and (suspected) exposure to other viral communicable diseases
CPT/HCPCS: 36000; 36415; 71045; 80047; 80048; 80053; 83880; 84484; 85025; 85027; 93041; 93268; 94640; 94760; 94762; 96360; 96365; 96374; 99285; J1956; J2405; J2930; J7609; A9270-GY; G0378

== ENCOUNTER 2024-04-19 12:50 | Emergency (ER) | payer MEDICARE ==
--- NOTE | 2024-04-19 12:54 | ERPHSYRPT ---
- History of Present Illness Time Seen by Provider: 04/19/24 12:54 Source: patient, family Exam Limitations: no limitations Physician History: This is a 69-year-old white female patient of Dr. Fleiciano who presents by private vehicle secondary to left leg redness anteriorly below the knee secondary to being scratched by her cat. Patient states that she actually stepped on her own cat's tail and the reaction was that the cat scratched her lower leg on the left side anteriorly. This morning there is increased redness. No pain is present. Patient has a history of COPD. She is here for antibiotics and a tetanus shot. Timing/Duration: yesterday Severity: mild Possible Causes: other (Scratch) Associated Symptoms: denies symptoms Allergies/Adverse Reactions: cephalexin monohydrate [From Keflex] Allergy (Severe, Verified 04/19/24 12:58) nitroglycerin Allergy (Severe, Verified 04/19/24 12:58) cardiac arrest Home Medications: Aspirin EC 325 mg [Ecotrin 325 MG] 325 mg PO DAILY 08/07/13 [History] Budesonide/Formoterol Fumarate [Budesonide-Formoterol 160-4.5] 10.2 gm IH BID 11/26/22 [History] Hx Tetanus, Diphtheria Vaccination/Date Given: No Hx Influenza Vaccination/Date Given: No Hx Pneumococcal Vaccination/Date Given: No Travel Risk - International Travel Have you traveled outside of the country in past 3 weeks: No - Emerging Infectious Disease Are you exhibiting symptoms associated with any current EIDs: No - Review of Systems Constitutional: No Symptoms Eyes: No Symptoms Ears, Nose, & Throat: No Symptoms Respiratory: No Symptoms Cardiac: No Symptoms Abdominal/Gastrointestinal: No Symptoms Genitourinary Symptoms: No Symptoms Musculoskeletal: No Symptoms Skin: Cellulitis (Mild skin cellulitis anterior left lower leg low the knee) Neurological: No Symptoms Psychological: No Symptoms Endocrine: No Symptoms Hematologic/Lymphatic: No Symptoms Immunological/Allergic: No Symptoms All Other Systems: Reviewed and Negative - Past Medical History Pertinent Past Medical History: Yes Neurological History: No Pertinent History ENT History: Macular Degeneration Cardiac History: No Pertinent History Respiratory History: COPD Endocrine Medical History: No Pertinent History Musculoskeletal History: No Pertinent History GI Medical History: Gallbladder Disease History: No Pertinent History Psycho-Social History: No Pertinent History Female Reproductive Disorders: No Pertinent History - Past Surgical History Past Surgical History: Yes Neuro Surgical History: No Pertinent History Cardiac: No Pertinent History Respiratory: No Pertinent History Gastrointestinal: Cholecystectomy, Hernia Repair Genitourinary: No Pertinent History Musculoskeletal: No Pertinent History Female Surgical History: No Pertinent History - Social History Smoking Status: Current every day smoker How long have you smoked: 50 Exposure to second hand smoke: Yes Drug Use: none Patient Lives Alone: No - Nursing Vital Signs Nursing Vital Signs: Initial Vital Signs Temperature 98.2 F 04/19/24 13:00 Pulse Rate 66 04/19/24 13:00 Respiratory Rate 20 04/19/24 13:00 Blood Pressure 148/76 04/19/24 13:00 O2 Sat by Pulse Oximetry 98 04/19/24 13:00 Pain Scale Pain Intensity 0 - Physical Exam General Appearance: no apparent distress, alert Eye Exam: PERRL/EOMI Ears, Nose, Throat Exam: normal ENT inspection, moist mucous membranes Neck Exam: normal inspection, non-tender, supple, full range of motion Respiratory Exam: airway intact, No chest tenderness, No respiratory distress Gastrointestinal/Abdomen Exam: No tenderness Pelvic Exam: not done Rectal Exam: not done Back Exam: normal inspection, normal range of motion, No CVA tenderness, No vertebral tenderness Extremity Exam: normal range of motion, pelvis stable, other (Mild cellulitis below the knee left knee anteriorly.) Neurologic Exam: alert, oriented x 3, cooperative, internal control specialist II-XII nml as tested, normal mood/affect, nml cerebellar function, nml station & gait, sensation nml Skin Exam: other (The above description in the extremity section) Lymphatic Exam: No adenopathy SpO2 Interpretation: normal O2 Delivery: Room Air - Course Nursing assessment & vital signs reviewed: Yes Ordered Tests: Medication Summary Discontinued Medications Generic Name Dose Route Start Last Admin Trade Name Freq PRN Reason Stop Dose Admin Azithromycin 500 mg 04/19/24 14:00 Azithromycin 250 Mg Tablet PO 04/19/24 14:01 STAT ONE Diphtheria/Tetanus/Acell Pertussis 0.5 ml 04/19/24 14:00 Tdap --Diph,Pertuss(Acell),Tet Vac/Pf 0.5 Ml Vial IM 04/19/24 14:01 .ONCE ONE - Progress Progress: unchanged Progress Note: 04/19/24 14:10 Medical decision making and the assignment of low complexity to this patient's medical issue today is based on review of the patient's past medical history, review of the patient's medication list, review patient drug allergy list, history present illness and physical findings on examination. The patient workup does not require laboratory radiographic studies. 04/19/24 14:11 I discussed with the patient the importance of being reexamined in the next 24 hours. I recommend that she return to the emergency department for reevaluation. She states that she will attempt to obtain an outpatient appointment with her primary care physician tomorrow, 04/20/2024. If she cannot, the patient was told to come to the emergency department for reevaluation. Counseled pt/family regarding: diagnosis, need for follow-up Medical Desision Making - Diagnostic Testing Diagnostic test were ordered, analyzed, and reviewed by me: No - Risk of complications The pt has a mod risk of morbidity or mortality based on: Need for prescription drug management - Departure Departure Disposition: Home Clinical Impression: Cellulitis of left leg, Cat scratch Condition: Stable Critical Care Time: No Referrals: NIYA FELICIANO MD [Primary Care Provider] - Follow up/PCP as directed Additional Instructions: Keep the cat scratch site clean daily with soap and water. Return to the emergency department tomorrow, 04/20/2024, for reevaluation. Take your medications as prescribed Prescriptions: Azithromycin 250 mg [Zithromax 250 MG TABLET] 250 mg PO ZPACK #4 tablet
[2024-04-19 13:08] VITALS: BP 148/76; PULSE 66; RESP 20; TEMP 98.2; O2SAT 98
[2024-04-19] MEDS ORDERED: Zithromax 250 MG TABLET ONE (14:15)
[2024-04-19] MEDS ORDERED: Adacel Vial IM ONE (14:15)
[2024-04-19] MEDS: Adacel Vial IM ONE (14:18)
[2024-04-19] MEDS: Zithromax 250 MG TABLET PO ONE (14:20)
== END 2024-04-19 14:26 | disposition home or self-care (01) ==
LOC: ED 12:50
DX: S80.812A Abrasion, left lower leg, initial encounter (principal); L03.116 Cellulitis of left lower limb; W55.03XA Scratched by cat, initial encounter; Z79.899 Other long term (current) drug therapy; Z72.0 Tobacco use; Z23 Encounter for immunization
CPT/HCPCS: 90471; 90715; 99282; A9270-GY